=== PATIENT | female | born 1945 | race Caucasian/White ===

== ENCOUNTER → 2017-02-20 17:56 | Outpatient (CLI) | payer MEDICARE ==
[2015-01-30 13:20] VITALS: BMI 40.8
[~2017-02-20 17:56] MED LIST: BAYER CHEWABLE81 MG PO; BENADRYL INJ50 MG/ML IV; BENADRYL50 MG PO; BETAPACE 80 MG80 MG PO; BETAPACE160 MG PO; CALMOSEPTINE OI71 GM TOPICAL; COLACE100 MG PO; COUMADIN1 MG PO; COUMADIN3 MG PO; COUMADIN5 MG PO; DULCOLAX10 MG/SUPP RC; FLORANEX / LACT1 TAB PO; HYDROCODONE-APA1 TAB PO; LEVOXYL25 MCG PO; LOPERAMIDE HCL2 MG PO; LOPRESSOR25 MG PO; MIRALAX17 GM PO; MS CONTIN15 MG PO; MUCINEX600 MG PO; MULTI-DAY VITAM1 TAB PO; NALOXONE HC0.4 MG/M1 IV; NYSTATIN ORAL SU5 ML PO; NYSTATIN1 PWD TOPICAL; ONDANSETRON4 MG/2 M3 IV; OXYCODONE HCL5 MG PO; PHENERGAN25 M1 PO; POTASSIUM CHLO10 ME1 PO; PRILOSEC20 MG PO; PROTONIX40 MG PO; QUESTRAN PACK4 G/PKT PO; REGLAN10 MG PO; SENOKOT-S TABLE1 TAB PO; VANCOMYCIN250 MG/51 PO; XARELTO10 MG
== END | disposition home or self-care (01) ==
LOC: D.MAMMO 16:00
DX: Z12.31 Encounter for screening mammogram for malignant neoplasm of breast (principal)

== ENCOUNTER 2018-04-21 11:42 | Inpatient (IN) | payer MEDICARE ==
[~2018-04-21] VITALS: Ht 160 cm; Wt 105.9 kg
[2018-04-21] MEDS ORDERED: OMEPRAZOLE20 M1 PO (12:24)
[2018-04-21 13:00] VITALS: Ht 160 cm; Wt 105.9 kg
[2018-04-21 15:41] VITALS: BP 96/58
[2018-04-21 19:00] VITALS: BP 109/55
--- NOTE | 2018-04-21 20:00 | NUR ---
ASSESSMENT PER FLOWSHEET. HIVES AND RED RASHES NOTED TO ENTIRE BODY. SKIN TO LEFT ARM SLOUGHING OFF. IV PATENT RT FOREARM SALINE LOCKED. LEFT KNEE WOUND WITH BANDAIDE NOTED. BED ALARM BED ON SR UP X2 CALL LIGHT WITHIN REACH.
--- NOTE | 2018-04-21 21:30 | NUR ---
MEDS GIVEN PER MAR.
--- NOTE | 2018-04-22 | NUR ---
EYES CLOSED RESPIRATIONS WITH EASE AND UNLABORED.
[2018-04-22 01:26] VITALS: BP 105/51
--- NOTE | 2018-04-22 03:56 | NUR ---
RESTING QUIETLY DENIES NEEDS.
[2018-04-22 04:29] LABS: BASOPHILS 0 % (0-2); EOSINOPHILS 0 % (0-7); HEMATOCRIT 43.2 % (36.0-48.0); HEMOGLOBIN 14.4 g/dL (12-16); IMMATURE GRANULOCYTES 0.5 % (0-5); LYMPHOCYTES 7.3 % (15-50); MCHC 33.3 g/dL (31.0-37.0); MEAN PLATELET VOLUME 9.7 fL (7.4-10.4); MONOCYTES 3.1 % (2-11); NEUTROPHILS 89.1 % (40-80); PLATELET COUNT 275 10x3/uL (130-400); RDW 14.2 % (11.5-14.5); WBC 12.3 10x3/uL (4.8-10.8)
[2018-04-22 04:45] LABS: ALKALINE PHOSPHATASE 47 U/L (46-116); ALT (SGPT) 14 U/L (10-68); BILIRUBIN - TOTAL 0.52 mg/dL (0.2-1.3); CALC OSMOLALITY 284 mosm/kg (275-300); CALCIUM 8.7 mg/dL (8.5-10.1); CARBON DIOXIDE 25.8 mmol/L (21.0-32.0); CHLORIDE - SERUM 104 mmol/L (98-107); CREATININE - SERUM 0.7 mg/dL (0.6-1.3); GLUCOSE 151 mg/dL (74-106); POTASSIUM - SERUM 3.8 mmol/L (3.5-5.1); PROTEIN - SERUM 6.5 g/dL (6.4-8.2); SODIUM 141 mmol/L (136-145); UREA NITROGEN 16 mg/dL (7-18); eGFR NON AFRICAN AMERICAN 87 mL/min (90-120)
[2018-04-22 05:01] VITALS: BP 98/41
[2018-04-22 08:35] VITALS: BP 110/63
--- NOTE | 2018-04-22 09:15 | NUR ---
ASSISTED PATIENT TO BR. NO COMPLAINTS OR PTOBLEMS. CALL LIGHT WITHIN REACH.
--- NOTE | 2018-04-22 10:52 | NUR ---
PT INQUIRED ON POSSIBLE BENADRYL FOR ITCHING, ORDERED PT BENEDRYL AND PT ASKED ABOUT HOME MEDS, CALLED DR SAMUELS AND LEFT MESSAGE WITH NURSE IN REGARDS TO RESTARTING PT MEDS AND CREAM FOR PT RASH. PT STATED SHE FEELS BENJAMIN BUT REDNESS HAS NOT GONE DOWN, ADVISED DR KERNS BE IN AFTER CLINIC. BED IN LOW POSITION, CL IN REACH
[2018-04-22 12:00] VITALS: BP 103/46
[2018-04-22 16:00] VITALS: BP 117/56
[2018-04-22 21:37] VITALS: BP 124/53
--- NOTE | 2018-04-23 01:12 | NUR ---
PAIN IN IV SITE, EDEMATOUS. DC'D. 22G RESITED TO LEFT FOREARM, FIRST ATTEMPT. PT TOLERATED WELL.
[2018-04-23 01:25] VITALS: BP 123/51
--- NOTE | 2018-04-23 02:05 | NUR ---
DISCONNECTED FROM IV SET AND SALINE LOCKED.
[2018-04-23 04:50] VITALS: BP 114/50
--- NOTE | 2018-04-23 05:00 | NUR ---
EYES CLOSED RESPIRATIONS WITH EASE AND UNLABORED.
[2018-04-23 07:01] LABS: ANION GAP 15.8 mmol/L (8-16); BILIRUBIN - TOTAL 0.4 mg/dL (0.2-1.3); CALCIUM 8.3 mg/dL (8.5-10.1); CREATININE - SERUM 0.8 mg/dL (0.6-1.3); POTASSIUM - SERUM 3.8 mmol/L (3.5-5.1); PROTEIN - SERUM 6.4 g/dL (6.4-8.2)
[2018-04-23 07:49] LABS: HEMATOCRIT 40.7 % (36.0-48.0); HEMOGLOBIN 13.7 g/dL (12-16); LYMPHOCYTES 9.7 % (15-50); MCH 30.4 pg (26.0-34.0); MCHC 33.7 g/dL (31.0-37.0); MCV 90.4 fL (80.0-100.0); MEAN PLATELET VOLUME 9.8 fL (7.4-10.4); NEUTROPHILS 80.3 % (40-80); PLATELET COUNT 272 10x3/uL (130-400); RDW 13.9 % (11.5-14.5)
[2018-04-23 07:50] LABS: WBC 16.6 10x3/uL (4.8-10.8)
[2018-04-23 09:26] VITALS: BP 170/85
--- NOTE | 2018-04-23 09:41 | NUR ---
ASSESSMENT PER FLOW SHEET. PT IS WITHOUT DISTRESS.CALL LIGHT IN REACH
--- NOTE | 2018-04-23 11:08 | MORECARE ---
CASE MANAGEMENT DISCHARGE SUMMARY PATIENT: TREASURE MONTELONGO UNIT: [id number] ADM DATE: 04/21/18 AGE: 72 : 45 SEX: F ROOM/BED: D.2224 AUTHOR: KAEL DAVIS PHYSICIAN: REFERRING PHYSICIAN: RAEANN SAMUELS MD DATE OF SERVICE: 04/23/18 Discharge Plan Patient Name: TREASURE MONTELONGO [facility] [facility] 1945 Planned Disposition: Home Anticipated Discharge Date: Discharge Date: Expected LOS: Initial Reviewer: [email or web address] Initial Review Date: 04/23/2018 Generated: 04/23/18 12:08 pm DCPIA - Discharge Planning Initial Assessment Updated by [email or web address]: Isabel Reza on 04/23/18 11:08 am * Is the patient Alert and Oriented? Yes * How many steps to enter\exit or inside your home? 0/0 * PCP Dr. Samuels * Pharmacy [facility] * Preadmission Environment Home with Family * ADLs Independent * Equipment Cane Rolling Walker * Other Equipment Rolator walker * List name and contact numbers for known caregivers / representatives who currently or will assist patient after discharge: Radha Greenwood [facility] - [phone] * Verbal permission to speak to the caregivers and representatives has been obtained from the patient. Yes * Community resources currently utilized None * Additional services required to return to the preadmission environment? No * Can the patient safely return to the preadmission environment? Yes * Has this patient been hospitalized within the prior 30 days at any hospital? No Patient Name: TREASURE MONTELONGO Page 38580 at 1108 All edits/amendments must be made on the electronic document DICTATION DATE: 04/23/181107 BRICK KILN WORKER: JOLANTA 04/23/181107 RPT#: [id number] DC DATE: STATUS: ADM IN [facility] [address] [place] [address] END OF REPORT
--- NOTE | 2018-04-23 11:16 | MORECARE ---
CASE MANAGEMENT DISCHARGE SUMMARY PATIENT: TREASURE MONTELONGO UNIT: [id number] ADM DATE: 04/21/18 AGE: 72 : 45 SEX: F ROOM/BED: D.2224 AUTHOR: SUSAN,DOC PHYSICIAN: REFERRING PHYSICIAN: RAEANN SAMUELS MD DATE OF SERVICE: 04/23/18 Discharge Plan Patient Name: TREASURE MONTELONGO Facility: [facility]:[place] : 1945 Planned Disposition: Home Anticipated Discharge Date: Discharge Date: Expected LOS: Initial Reviewer: [email or web address] Initial Review Date: 04/23/2018 Generated: 04/23/18 12:15 pm Comments DCP- Discharge Planning Updated by [email or web address]: Isabel Reza on 04/23/18 10:[address] Patient Name: TREASURE MONTELONGO Admission Status: Elective Accout number: [id number] Admission Date: 04-21-2018 : 1945 Admission Diagnosis: Attending: RAEANN SAMUELS Current LOS: 2 Anticipated DC Date: Planned Disposition: Home Primary Insurance: MEDICARE A & B Discharge Planning Comments: CM met with patient to discuss discharge planning, she is alone in the room. States she lives with her cousin (Radha) and her family. States she is independent with all ADL's and IADL's. States her car is here and she will drive herself home on discharge. States she has had [facility] past, but does not feel she needs home health at this time. States she has a cane she uses when out. States she does not use her rolator walker. Declines need for DME. No needs identified. CM will continue to follow and assist with discharge planning/needs. Excel Specialist: Isabel Reza DCPIA - Discharge Planning Initial Assessment Updated by [email or web address]: Isabel Reza on 04/23/18 11:08 am * Is the patient Alert and Oriented? Yes * How many steps to enter\exit or inside your home? 0/0 * PCP Dr. Samuels * [facility]acy [facility] * Preadmission Environment Home with Family * ADLs Independent * Equipment Cane Rolling Walker * Other Equipment Rolator walker * List name and contact numbers for known caregivers / representatives who currently or will assist patient after discharge: Radha Greenwood - jeannettenua - [phone] * Verbal permission to speak to the caregivers and representatives has been obtained from the patient. Yes * Community resources currently utilized None * Additional services required to return to the preadmission environment? No * Can the patient safely return to the preadmission environment? Yes * Has this patient been hospitalized within the prior 30 days at any hospital? No Last DP export: 04/23/18 10:08 a Patient Name: TREASURE MONTELONGO Page 79062 at 1116 All edits/amendments must be made on the electronic document DICTATION DATE: 04/23/181114 MEN'S AND BOYS' CLOTHING SALESPERSON: JOLANTA 04/23/181114 RPT#: [id number] DC DATE: STATUS: ADM IN [facility] [address] [place] [address] END OF REPORT
[2018-04-23 14:04] VITALS: BP 131/62
[2018-04-23 17:09] VITALS: BP 139/80
--- NOTE | 2018-04-23 19:29 | NUR ---
REMAINS WITHOUT CHANGE FROM INITIAL SHIFT ASSESSMENT.CONT PLAN OF CARE
[2018-04-23 20:00] VITALS: BP 138/58
--- NOTE | 2018-04-23 20:00 | NUR ---
A&0 X 4. ARMS STILL APPEAR TO BE A MAJORITY COVERED IN RED RASH. UPPER ARM ARE PEELING. PT STATES THAT BENADRYL DOES HELP RELIEVE THE ITCHING. PT HAS NO COMPLAINTS AT THIS TIME, WILL CONTINUE TO MONITOR.
[2018-04-24] VITALS: BP 116/71
--- NOTE | 2018-04-24 02:22 | NUR ---
RESTING IN BED RESP UNLABORED NO APPARENT DISTRESS CALL DAVID ROBERTSON
--- NOTE | 2018-04-24 02:45 | NUR ---
SUPINE IN BED, EYES CLOSED, CHEST RISE NOTED. NO S/SX OF DISTRESS.
[2018-04-24 04:00] VITALS: BP 115/72
[2018-04-24 05:22] LABS: ALBUMIN 2.7 g/dL (3.4-5.0); ALKALINE PHOSPHATASE 45 U/L (46-116); ALT (SGPT) 13 U/L (10-68); BILIRUBIN - TOTAL 0.43 mg/dL (0.2-1.3); CALC OSMOLALITY 283 mosm/kg (275-300); CARBON DIOXIDE 24.8 mmol/L (21.0-32.0); CHLORIDE - SERUM 104 mmol/L (98-107); CREATININE - SERUM 0.6 mg/dL (0.6-1.3); GLUCOSE 134 mg/dL (74-106); POTASSIUM - SERUM 3.7 mmol/L (3.5-5.1); SODIUM 139 mmol/L (136-145); UREA NITROGEN 25 mg/dL (7-18); eGFR NON AFRICAN AMERICAN > 90 mL/min (90-120)
[2018-04-24 05:36] LABS: BASOPHILS 0 % (0-2); EOSINOPHILS 0 % (0-7); HEMATOCRIT 41.6 % (36.0-48.0); HEMOGLOBIN 13.6 g/dL (12-16); IMMATURE GRANULOCYTES 0.7 % (0-5); LYMPHOCYTES 7.1 % (15-50); MCH 29.6 pg (26.0-34.0); MCHC 32.7 g/dL (31.0-37.0); MCV 90.6 fL (80.0-100.0); MEAN PLATELET VOLUME 10.2 fL (7.4-10.4); MONOCYTES 5.2 % (2-11); PLATELET COUNT 254 10x3/uL (130-400); RBC 4.59 10x6/uL (4.00-5.40); RDW 14.4 % (11.5-14.5); WBC 14.1 10x3/uL (4.8-10.8)
--- NOTE | 2018-04-24 08:25 | NUR ---
PT RESTING IN BED WATCHING TV. NO S/S OF ACUTE DISTRESS. CL IN PLACE.
[2018-04-24 08:28] VITALS: BP 140/66
[2018-04-24 12:58] VITALS: BP 117/44
[2018-04-24 15:58] VITALS: BP 118/52
[2018-04-24 20:00] VITALS: BP 137/66
[2018-04-25] VITALS: BP 147/76
[2018-04-25 04:00] VITALS: BP 136/70
[2018-04-25 06:39] LABS: BASOPHILS 0.1 % (0-2); EOSINOPHILS 0 % (0-7); HEMATOCRIT 44.6 % (36.0-48.0); HEMOGLOBIN 14.7 g/dL (12-16); IMMATURE GRANULOCYTES 1.3 % (0-5); LYMPHOCYTES 9.7 % (15-50); MCH 29.9 pg (26.0-34.0); MCV 90.7 fL (80.0-100.0); MONOCYTES 7.4 % (2-11); NEUTROPHILS 81.5 % (40-80); PLATELET COUNT 281 10x3/uL (130-400); RBC 4.92 10x6/uL (4.00-5.40); RDW 14.2 % (11.5-14.5); WBC 13.6 10x3/uL (4.8-10.8)
--- NOTE | 2018-04-25 07:00 | NUR ---
REPORT RECIEVED ASSUMED CARE. PATIENT IN BED WITH IV INTACT. NO COMPLAINTS OR SIGNS OF DISTRESS. CALL LIGHT WITHIN REACH.
[2018-04-25 07:09] LABS: ALBUMIN 2.9 g/dL (3.4-5.0); ALKALINE PHOSPHATASE 41 U/L (46-116); ALT (SGPT) 12 U/L (10-68); BILIRUBIN - TOTAL 0.55 mg/dL (0.2-1.3); CALC OSMOLALITY 281 mosm/kg (275-300); CARBON DIOXIDE 27.2 mmol/L (21.0-32.0); CHLORIDE - SERUM 102 mmol/L (98-107); CREATININE - SERUM 0.7 mg/dL (0.6-1.3); GLUCOSE 123 mg/dL (74-106); POTASSIUM - SERUM 3.8 mmol/L (3.5-5.1); PROTEIN - SERUM 6.2 g/dL (6.4-8.2); SODIUM 139 mmol/L (136-145); UREA NITROGEN 22 mg/dL (7-18); eGFR NON AFRICAN AMERICAN 87 mL/min (90-120)
--- NOTE | 2018-04-25 08:45 | NUR ---
ASSESSMENT COMPLETE, VS STABLE. NO COMPLAINTS OR SIGNS OF DISTRESS. STATED SHE DOESNT WANT TO USE HER CREAM RIGHT NOW UNTIL SHE TALKS TO DR. SAMUELS ABOUT A FLARE UP SHE HAD LAST NIGHT. WILL CONTINUE TO MONITOR. IV INTACT. CALL LIGHT WITHIN REACH.
[2018-04-25 09:00] VITALS: BP 138/69
[2018-04-25 12:00] VITALS: BP 127/60
[2018-04-25 16:00] VITALS: BP 113/59
[2018-04-25 19:38] VITALS: BP 135/68
--- NOTE | 2018-04-25 20:27 | NUR ---
PATIENT RESTING IN BED AND DENIES NEEDS AT THIS TIME. ADMINISTERED MEDS PER ORDERS. BED IN LOWEST POSITION AND CALL LIGHT WITHIN REACH. ENCOURAGED THE PATIENT TO CALL IF SHE HAS NEEDS.
[2018-04-26] VITALS: BP 134/62
[2018-04-26 04:00] VITALS: BP 159/66
[2018-04-26 07:03] LABS: BASOPHILS 0 % (0-2); EOSINOPHILS 0 % (0-7); HEMATOCRIT 41.2 % (36.0-48.0); HEMOGLOBIN 13.5 g/dL (12-16); IMMATURE GRANULOCYTES 1.3 % (0-5); LYMPHOCYTES 9.9 % (15-50); MCH 29.7 pg (26.0-34.0); MCHC 32.8 g/dL (31.0-37.0); MCV 90.5 fL (80.0-100.0); MONOCYTES 8.2 % (2-11); NEUTROPHILS 80.6 % (40-80); PLATELET COUNT 228 10x3/uL (130-400); RBC 4.55 10x6/uL (4.00-5.40); WBC 12.1 10x3/uL (4.8-10.8)
[2018-04-26 07:23] LABS: ALBUMIN 2.7 g/dL (3.4-5.0); ALKALINE PHOSPHATASE 34 U/L (46-116); ALT (SGPT) 14 U/L (10-68); BILIRUBIN - TOTAL 0.45 mg/dL (0.2-1.3); CALC OSMOLALITY 284 mosm/kg (275-300); CARBON DIOXIDE 26.2 mmol/L (21.0-32.0); CHLORIDE - SERUM 104 mmol/L (98-107); CREATININE - SERUM 0.7 mg/dL (0.6-1.3); GLUCOSE 121 mg/dL (74-106); PROTEIN - SERUM 5.6 g/dL (6.4-8.2); SODIUM 139 mmol/L (136-145); eGFR NON AFRICAN AMERICAN 87 mL/min (90-120)
[2018-04-26 07:26] LABS: UREA NITROGEN 29 mg/dL (7-18)
[2018-04-26 09:00] VITALS: BP 146/69
[2018-04-26 12:00] VITALS: BP 131/71
--- NOTE | 2018-04-26 19:15 | NUR ---
RECEIVED CARE FROM DAY NURSE. SITTING UP IN BED WATHCING TV. REPORTS NO NEEDS AT THIS TIME. IV SL TO LEF FA. CALL LIGHT AT SIDE.
[2018-04-26 20:47] VITALS: BP 156/76
[2018-04-27 00:41] VITALS: BP 148/70
--- NOTE | 2018-04-27 03:55 | NUR ---
A/OX4. BREATHING EVEN AND UNLABORED. DENIES NEEDS AT THIS TIMKE. WILL CONTINUE POC.
[2018-04-27 04:00] VITALS: BP 188/89
--- NOTE | 2018-04-27 07:50 | NUR ---
ASSESSMENT PER FLOW SHEET. PT IS WITHOUT DISTRESS.RASH AND REDNESS BETTER PER PT. RASH LIGHT PINK IN SOME AREAS, RED IN GROIN AREAS.DENIES PAIN.CALL LIGHT IN REACH
[2018-04-27 09:14] VITALS: BP 149/81
--- NOTE | 2018-04-27 11:38 | NUR ---
FSBS 121
[2018-04-27 12:00] VITALS: BP 125/84
--- NOTE | 2018-04-27 13:08 | NUR ---
RESTING,WITHOUT DISTRESS.
--- NOTE | 2018-04-27 18:58 | NUR ---
PT IS WITHOUT DISTRESS. REMAINS WITHOUT CHANGE.CONT PLAN OF CARE
--- NOTE | 2018-04-27 20:00 | NUR ---
ASSESSMENT PER FLOWSHEET. IV PATENT LEFT FOREARM SALINE LOCKED. RED RASH DECREASING IN COLOR KENALOG CREAM APPLIED TO SKIN RASH. SR UP X2 CALL LIGHT WITHIN REACH. DENIES NEEDS.
--- NOTE | 2018-04-27 21:30 | NUR ---
MEDS GIVEN PER FLOWSHEET. [id number].
[2018-04-27 21:52] VITALS: BP 135/78
--- NOTE | 2018-04-28 | NUR ---
RESTING QUIETLY DENIES NEEDS.
[2018-04-28 04:50] VITALS: BP 127/72
--- NOTE | 2018-04-28 08:00 | NUR ---
ASSESSMENT PER FLOW SHEET. PT IS WITHOUT DISTRESS.SHE WILL SHOWER AFTER BREAKFAST THIS AM. CALL LIGHT IN REACH
[2018-04-28 08:36] VITALS: BP 147/80
[2018-04-28 13:06] VITALS: BP 145/64
--- NOTE | 2018-04-28 14:24 | NUR ---
REMAINS WITHOUT NEEDS.CALL LIGHT IN REACH
--- NOTE | 2018-04-28 14:28 | NUR ---
NUTRITION F/U CHART REVIEWED. PT TOLERATING DIABETIC DIET WITH 100% INTAKE RECENT MEALS. CONTINUES TO BE ASSESSED AT LOW NUTRITIONAL RISK. RD FOLLOWING
[2018-04-28 17:00] VITALS: BP 147/80
--- NOTE | 2018-04-28 18:55 | NUR ---
REMAINS UNCHANGED FROM INITIAL SHIFT ASSESSMENT.CONT PLAN OF CARE
[2018-04-28 21:50] VITALS: BP 103/55
--- NOTE | 2018-04-29 04:33 | NUR ---
PT LYING IN BED RESTING, NO SIGNS OF DISTRESS. WITHOUT NEEDS. WILL CONTINUE TO MONITOR
[2018-04-29 05:26] VITALS: BP 131/61
--- NOTE | 2018-04-29 07:30 | NUR ---
PATIENT SITTING UP IN BED WITH IV INTACT. NO COMPLAINTS OR SIGNS OF DISTRESS. CALL LIGHT WITHIN REACH.
--- NOTE | 2018-04-29 10:55 | NUR ---
PATIENT SITTING UP IN BED WITH NO COMPLAINTS. RASH AND HIVES ARE BETTER THAN A COUPLE OF DAYS AGO. PATIENT STATES READY TO GO HOME. IV INTACT. RECIEVED SCHEDULED MEDS. BS WNL. CALL LIGHT WITHIN REACH.
[2018-04-29 12:19] VITALS: BP 108/66
[2018-04-29] MEDS ORDERED: PROTONIX40 MG PO (12:30)
[2018-04-29] MEDS ORDERED: Eucerin CREAM TOPICAL (12:31)
[2018-04-29] MEDS ORDERED: KENALOG 0.1 % O15 GM TOPICAL (12:31)
[2018-04-29] MEDS ORDERED: PREDNISONE20 MG PO (12:34)
--- NOTE | 2018-04-29 13:10 | MORECARE ---
CASE MANAGEMENT DISCHARGE SUMMARY PATIENT: TREASURE MONTELONGO UNIT: [id number] ADM DATE: 04/21/18 AGE: 72 : 45 SEX: F ROOM/BED: D.2224 AUTHOR: SUSAN,DOC PHYSICIAN: REFERRING PHYSICIAN: RAEANN SAMUELS MD DATE OF SERVICE: 04/29/18 Discharge Plan Patient Name: TREASURE MONTELONGO Facility: [facility]:[place] : 1945 Planned Disposition: Home Anticipated Discharge Date: Discharge Date: Expected LOS: Initial Reviewer: [id number] Initial Review Date: 04/23/2018 Generated: 04/29/18 2:10 pm Comments DCP- Discharge Planning Updated by [email or web address]: Isabel Reza on 04/29/18 12:[address] Received order for discharge. IMM explained, signed, copy given. She states her cousin and her is coming to pick her up and drive her car home. States she does not need home health at this time. No needs identified. CM will continue to follow and assist with discharge planning if needed. DCP- Discharge Planning Updated by [email or web address]: Isabel Reza on 04/23/18 10:[address] Patient Name: TREASURE MONTELONGO Admission Status: Elective Accout number: [id number] Admission Date: 04-21-2018 : 1945 Admission Diagnosis: Attending: RAEANN SAMUELS Current LOS: 2 Anticipated DC Date: Planned Disposition: Home Primary Insurance: MEDICARE A & B Discharge Planning Comments: CM met with patient to discuss discharge planning, she is alone in the room. States she lives with her cousin (Radha) and her family. States she is independent with all ADL's and IADL's. States her car is here and she will drive herself home on discharge. States she has had [facility] in [facility] past, but does not feel she needs home health at this time. States she has a cane she uses when out. States she does not use her rolator walker. Declines need for DME. No needs identified. CM will continue to follow and assist with discharge planning/needs. Insurance Territory Manager: Isabel Reza DCPIA - Discharge Planning Initial Assessment Updated by [id number]: Isabel Cokerell on 04/23/18 11:08 am * Is the patient Alert and Oriented? Yes * How many steps to enter\exit or inside your home? 0/0 * PCP Dr. Samuels * [facility] * Preadmission Environment Home with Family * ADLs Independent * Equipment Cane Rolling Walker * Other Equipment Rolator walker * List name and contact numbers for known caregivers / representatives who currently or will assist patient after discharge: Radha Greenwood adenike - [phone] * Verbal permission to speak to the caregivers and representatives has been obtained from the patient. Yes * Community resources currently utilized None * Additional services required to return to the preadmission environment? No * Can the patient safely return to the preadmission environment? Yes * Has this patient been hospitalized within the prior 30 days at any hospital? No Coverage Notice Reviewer: [id number] - Isabel Reza Notice Issued Date-Time: 04/29/2018 13:02 Notice Type: IM Discharge Notice Notice Delivered To: Patient Relationship to Patient: Self Bean Viner Name: Delivery Method: HAND - Hand Delivered Mary Beth Days: Prior Verbal Notification: Recipient Understood Notice: Yes Recipient Signature: Yes Med Rec Note Co-signed by Attending: Coverage Notice Comment: IMM explained, signed, copy given, original placed in MR Last DP export: 04/23/18 10:16 a Patient Name: TREASURE MONTELONGO Page 71291 at 1310 All edits/amendments must be made on the electronic document DICTATION DATE: 04/29/18 1309 MUSIC ORCHESTRATOR: JOLANTA 04/29/18 1309 RPT#: [id number] DC DATE: STATUS: ADM IN [facility] [address] [place] [address] END OF REPORT
--- NOTE | 2018-04-29 14:28 | NUR ---
PATIENT RECIEVED DISCHARGE INSTRUCTIONS. VERBALIZED UNDERSTANDING. PRESCRIPTIONS SENT TO [facility]. PATIENT VERBALIZED UNDERSTANDING. IV REMOVED WITH CATH TIP INTACT. FRIEND HERE TO GET PATIENT. WAITING ON FOR DC. CALL LIGHT WITHIN REACH.
--- NOTE | 2018-04-30 13:27 | MORECARE ---
CASE MANAGEMENT DISCHARGE SUMMARY PATIENT: TREASURE MONTELONGO UNIT: [id number] ADM DATE: 04/21/18 AGE: 72 : 45 SEX: F ROOM/BED: D.2224 AUTHOR: SUSAN,DOC PHYSICIAN: REFERRING PHYSICIAN: RAEANN SAMUELS MD DATE OF SERVICE: 04/30/18 Discharge Plan Patient Name: TREASURE MONTELONGO Facility: [facility]:[place] : 1945 Planned Disposition: Home Anticipated Discharge Date: Discharge Date: 04/29/2018 Expected LOS: 0 Initial Reviewer: [id number] Initial Review Date: 04/23/2018 Generated: 04/30/18 2:26 pm Comments DCP- Discharge Planning Updated by [id number]: Isabel Libia on 04/29/18 12:[address] Received order for discharge. IMM explained, signed, copy given. She states her cousin and her is coming to pick her up and drive her car home. States she does not need home health at this time. No needs identified. CM will continue to follow and assist with discharge planning if needed. DCP- Discharge Planning Updated by [id number]: Isabel Libia on 04/23/18 10:[address] Patient Name: TREASURE MONTELONGO Admission Status: Elective Accout number: [id number] Admission Date: 04-21-2018 : 1945 Admission Diagnosis: Attending: RAEANN SAMUELS Current LOS: 2 Anticipated DC Date: Planned Disposition: Home Primary Insurance: MEDICARE A & B Discharge Planning Comments: CM met with patient to discuss discharge planning, she is alone in the room. States she lives with her cousin (Radha) and her family. States she is independent with all ADL's and IADL's. States her car is here and she will drive herself home on discharge. States she has had [facility] in [facility] past, but does not feel she needs home health at this time. States she has a cane she uses when out. States she does not use her rolator walker. Declines need for DME. No needs identified. CM will continue to follow and assist with discharge planning/needs. Reference Services Head: Isabel Reza DCPIA - Discharge Planning Initial Assessment Updated by [id number]: Isabel Reza on 04/23/18 11:08 am * Is the patient Alert and Oriented? Yes * How many steps to enter\exit or inside your home? 0/0 * PCP Dr. Samuels * Pharmacy [facility] * Preadmission Environment Home with Family * ADLs Independent * Equipment Cane Rolling Walker * Other Equipment Rolator walker * List name and contact numbers for known caregivers / representatives who currently or will assist patient after discharge: Radha Greenwood [facility] - [phone] * Verbal permission to speak to the caregivers and representatives has been obtained from the patient. Yes * Community resources currently utilized None * Additional services required to return to the preadmission environment? No * Can the patient safely return to the preadmission environment? Yes * Has this patient been hospitalized within the prior 30 days at any hospital? No Coverage Notice Reviewer: [email or web address] - Isabel Reza Notice Issued Date-Time: 04/29/2018 13:02 Notice Type: IM Discharge Notice Notice Delivered To: Patient Relationship to Patient: Self Fish Hatchery Supervisor Name: Delivery Method: HAND - Hand Delivered Mary Beth Days: Prior Verbal Notification: Recipient Understood Notice: Yes Recipient Signature: Yes Med Rec Note Co-signed by Attending: Coverage Notice Comment: IMM explained, signed, copy given, original placed in MR Last DP export: 04/29/18 12:10 p Patient Name: TREASURE MONTELONGO Page 29909 at 1327 All edits/amendments must be made on the electronic document DICTATION DATE: 04/30/18 1326 REHABILITATION THERAPIST: JOLANTA 04/30/18 1326 RPT#: [id number] DC DATE:04/29/18 STATUS: DIS IN [facility] [address] [place] [address] END OF REPORT
== END 2018-04-29 14:32 | disposition home or self-care (01) | DRG 607 ==
LOC: D.MS 11:42
PROVIDERS: ADMIT Family Medicine
DX: L27.0 Generalized skin eruption due to drugs and medicaments taken internally (principal); I48.91 Unspecified atrial fibrillation; T36.4X5A Adverse effect of tetracyclines, initial encounter

== ENCOUNTER 2018-05-24 16:30 | Inpatient (IN) | payer MEDICARE ==
[~2018-05-24] VITALS: Ht 160 cm; Wt 97.6 kg
[2018-05-24] VITALS (8 sets, daily range): BP systolic 88–106; BP diastolic 31–66
[~2018-05-24 16:30] MED LIST changes: +Eucerin CREAM TOPICAL; +KENALOG 0.1 % O15 GM TOPICAL; +OMEPRAZOLE20 M1 PO; +PREDNISONE20 MG PO
[2018-05-24 17:24] LABS: HEMATOCRIT 41.9 % (36.0-48.0); HEMOGLOBIN 14.2 g/dL (12-16); MCH 29.8 pg (26.0-34.0); MCHC 33.9 g/dL (31.0-37.0); MEAN PLATELET VOLUME 9.7 fL (7.4-10.4); PLATELET COUNT 193 10x3/uL (130-400); RBC 4.76 10x6/uL (4.00-5.40); WBC 12.5 10x3/uL (4.8-10.8)
[2018-05-24 17:36] LABS: APTT 32.9 SECONDS (22.8-39.4); INR 1.26 (0.85-1.17); PROTIME 15.3 SECONDS (11.6-15.0)
[2018-05-24 17:37] LABS: D-DIMER-QUANTITATIVE 2.39 ug/mLFEU (0.20-0.54)
[2018-05-24 17:54] LABS: LYMPHOCYTES 22 % (15-50); MONOCYTES 3 % (2-11); NEUTROPHILS 75 % (40-80)
[2018-05-24 17:55] LABS: PLATELET ESTIMATE NORMAL
[2018-05-24 18:37] LABS: ALBUMIN 2.1 g/dL (3.4-5.0); ALKALINE PHOSPHATASE 52 U/L (46-116); ALT (SGPT) 20 U/L (10-68); BILIRUBIN - TOTAL 1.18 mg/dL (0.2-1.3); CALC OSMOLALITY 279 mosm/kg (275-300); CARBON DIOXIDE 21.8 mmol/L (21.0-32.0); CHLORIDE - SERUM 102 mmol/L (98-107); CREATININE - SERUM 0.9 mg/dL (0.6-1.3); GLUCOSE 106 mg/dL (74-106); POTASSIUM - SERUM 3.3 mmol/L (3.5-5.1); PROTEIN - SERUM 6.1 g/dL (6.4-8.2); SODIUM 139 mmol/L (136-145); UREA NITROGEN 19 mg/dL (7-18); eGFR NON AFRICAN AMERICAN 65 mL/min (90-120)
[2018-05-24 18:40] LABS: MAGNESIUM - SERUM 1.3 mg/dL (1.8-2.4)
[2018-05-24 18:41] LABS: TROPONIN-I < 0.017 ng/mL (0.000-0.060)
[2018-05-25] VITALS (7 sets, daily range): BP systolic 91–112; BP diastolic 54–63; Ht 160 cm; Wt 97.6 kg
[2018-05-25] MEDS ORDERED: KENALOG 0.1 % 115 GM TOPICAL (02:44)
[2018-05-25] MEDS ORDERED: FUROSEMIDE20 MG PO (02:44)
[2018-05-25 04:10] LABS: BASOPHILS 0.2 % (0-2); EOSINOPHILS 0.5 % (0-7); HEMATOCRIT 37.9 % (36.0-48.0); HEMOGLOBIN 12.7 g/dL (12-16); IMMATURE GRANULOCYTES 4.6 % (0-5); MCH 29.3 pg (26.0-34.0); MCHC 33.5 g/dL (31.0-37.0); MCV 87.3 fL (80.0-100.0); MEAN PLATELET VOLUME 9.3 fL (7.4-10.4); MONOCYTES 7.6 % (2-11); NEUTROPHILS 70.1 % (40-80); PLATELET COUNT 178 10x3/uL (130-400); RBC 4.34 10x6/uL (4.00-5.40)
[2018-05-25 04:44] LABS: ALBUMIN 1.8 g/dL (3.4-5.0); ALKALINE PHOSPHATASE 42 U/L (46-116); ALT (SGPT) 16 U/L (10-68); CALCIUM 7.3 mg/dL (8.5-10.1); CARBON DIOXIDE 23.7 mmol/L (21.0-32.0); CHLORIDE - SERUM 103 mmol/L (98-107); CKMB 0.6 U/L (0.0-3.6); CREATINE KINASE 15 UL (21-215); CREATININE - SERUM 0.7 mg/dL (0.6-1.3); GLUCOSE 73 mg/dL (74-106); PROTEIN - SERUM 5.4 g/dL (6.4-8.2); SODIUM 140 mmol/L (136-145); eGFR NON AFRICAN AMERICAN 87 mL/min (90-120)
[2018-05-25 04:45] LABS: CALC OSMOLALITY 277 mosm/kg (275-300); UREA NITROGEN 13 mg/dL (7-18)
[2018-05-25 04:46] LABS: POTASSIUM - SERUM 2.8 mmol/L (3.5-5.1); TROPONIN-I < 0.017 ng/mL (0.000-0.060)
[2018-05-26 01:31] VITALS: BP 84/48
[2018-05-26 05:11] LABS: BASOPHILS 0.5 % (0-2); EOSINOPHILS 0.5 % (0-7); HEMATOCRIT 35.4 % (36.0-48.0); HEMOGLOBIN 11.7 g/dL (12-16); IMMATURE GRANULOCYTES 8.1 % (0-5); LYMPHOCYTES 13.1 % (15-50); MCH 29.4 pg (26.0-34.0); MCHC 33.1 g/dL (31.0-37.0); MCV 88.9 fL (80.0-100.0); MEAN PLATELET VOLUME 9.2 fL (7.4-10.4); MONOCYTES 7.8 % (2-11); PLATELET COUNT 208 10x3/uL (130-400); RBC 3.98 10x6/uL (4.00-5.40); RDW 15.3 % (11.5-14.5); WBC 7.4 10x3/uL (4.8-10.8)
[2018-05-26 05:30] LABS: ALBUMIN 1.7 g/dL (3.4-5.0); ANION GAP 12.6 mmol/L (8-16); BILIRUBIN - TOTAL 0.44 mg/dL (0.2-1.3); CALCIUM 7.2 mg/dL (8.5-10.1); CARBON DIOXIDE 24.8 mmol/L (21.0-32.0); CREATININE - SERUM 0.8 mg/dL (0.6-1.3); POTASSIUM - SERUM 3.4 mmol/L (3.5-5.1); PROTEIN - SERUM 4.9 g/dL (6.4-8.2)
[2018-05-26 06:19] VITALS: BP 106/61
[2018-05-26 09:44] VITALS: BP 116/59
--- NOTE | 2018-05-26 10:45 | EC ---
PATIENT:TREASURE MONTELONGO DATE OF SERVICE: 05/24/18 SEX: F MEDICAL RECORD: [id number] DATE OF : 45 LOCATION:D. D.211 AGE OF PATIENT: 72 ADMISSION DATE: 05/24/18 REFERRING PHYSICIAN: INTERPRETING PHYSICIAN: SUMEET ARCHIBALD MD ECHOCARDIOGRAM REPORT ECHO CHARGES 4 ECHO COMPLETE Date: 05/25/18 CLINICAL DIAGNOSIS: AFIB ECHOCARDIOGRAPHIC MEASUREMENTS (adult normal given) AC root (d.<3.7cm) 2.9 cm LV Septum d (<1.2 cm> 0.6 cm Valve Excursion 1.5 cm LV Septum (systole) 1.1 cm Left Atria (s.<4.0cm> 2.9 cm LVPW d(<1.2cm) 1.0 cm RV (d.<2.3cm) 2.2 cm LVPW (sytole) 1.5 cm LV diastole(<5.6CM) 4.5 cm MV E-F(>70mm/sec) cm LV systole 3.1 cm LVOT Diameter 1.8 cm MV exc.(>10mm) cm Est.ejection fraction (50-75%) % DOPPLER: LVIT cm/sec A 74 cm/sec E 64 cm/sec LA cm/sec RVSP 43.4 mmHg LVOT 98 cm/sec AOP1/2T m/s Asc. Ao 141 cm/sec RVOT 46 cm/sec RA cm/sec PA 80 cm/sec AV Gradient Peak 8.0 mmHg AV Mean 4.3 mmHg AV Area 1.6 cm MV Gradient Peak 2.6 mmHg MV Mean 1.2 mmHg MV Area cm COMMENTS: Sheriffs: Kwesi MORALES Pharmacy Account Director: 1 Dr. Archibald TAPE# PACS Pericardial Effusion N DATE OF SERVICE: 05/25/2018 PROCEDURE: Echocardiogram. FINDINGS: 1. Left ventricular chamber size is within normal limits. Left ventricular systolic function is normal. Overall ejection fraction estimated at 55%. 2. Left atrium, right atrium, and right ventricle chamber sizes are within normal limits. 3. Valvular structures have normal structure and motion. ECHOCARDIOGRAM REPORT [id number] TREASURE MONTELONGO 4. Doppler interrogation reveals moderate tricuspid regurgitation, no other valvular insufficiency or stenosis. Pulmonary systolic pressure is estimated 43 mmHg. 5. No evidence of pericardial effusion or left ventricular thrombus. TRANSINT:[id number] Voice Confirmation ID: [id number] DOCUMENT ID: [id number] SUMEET ARCHIBALD MD at 1045 CC: [id number] DICTATION DATE: 05/25/18 1200 MACHINING ENGINEER: 05/25/18 1222 ADM IN [place] [address] [place] [address]
[2018-05-26 13:16] VITALS: BP 100/43
[2018-05-26 16:40] VITALS: BP 115/54
[2018-05-26 21:14] VITALS: BP 118/61
[2018-05-27] VITALS: BP 108/57
[2018-05-27 05:20] VITALS: BP 125/65
[2018-05-27 05:49] LABS: ALBUMIN 1.7 g/dL (3.4-5.0); ALKALINE PHOSPHATASE 34 U/L (46-116); ALT (SGPT) 16 U/L (10-68); BILIRUBIN - TOTAL 0.42 mg/dL (0.2-1.3); CARBON DIOXIDE 22.7 mmol/L (21.0-32.0); CHLORIDE - SERUM 108 mmol/L (98-107); CREATININE - SERUM 0.7 mg/dL (0.6-1.3); GLUCOSE 83 mg/dL (74-106); POTASSIUM - SERUM 3.2 mmol/L (3.5-5.1); PROTEIN - SERUM 4.9 g/dL (6.4-8.2); SODIUM 142 mmol/L (136-145); eGFR NON AFRICAN AMERICAN 87 mL/min (90-120)
[2018-05-27 05:51] LABS: CALC OSMOLALITY 279 mosm/kg (275-300); CALCIUM 6.9 mg/dL (8.5-10.1); UREA NITROGEN 7 mg/dL (7-18)
[2018-05-27 05:58] LABS: HEMATOCRIT 32.5 % (36.0-48.0); HEMOGLOBIN 10.7 g/dL (12-16); MCH 29.6 pg (26.0-34.0); MCHC 32.9 g/dL (31.0-37.0); MCV 89.8 fL (80.0-100.0); MEAN PLATELET VOLUME 9.1 fL (7.4-10.4); RBC 3.62 10x6/uL (4.00-5.40); RDW 15.3 % (11.5-14.5); WBC 6.2 10x3/uL (4.8-10.8)
[2018-05-27 06:03] LABS: PLATELET COUNT 252 10x3/uL (130-400)
[2018-05-27 07:01] LABS: EOSINOPHILS 1 % (0-7); LYMPHOCYTES 39 % (15-50); MONOCYTES 5 % (2-11); NEUTROPHILS 40 % (40-80)
[2018-05-27 07:02] LABS: PLATELET ESTIMATE NORMAL
[2018-05-27 07:48] VITALS: BP 103/58
[2018-05-27 11:03] VITALS: BP 101/53
[2018-05-27 15:45] VITALS: BP 103/38
--- NOTE | 2018-05-27 17:52 | MORECARE ---
CASE MANAGEMENT DISCHARGE SUMMARY PATIENT: TREASURE MONTELONGO UNIT: [id number] ADM DATE: 05/24/18 AGE: 72 : 45 SEX: F ROOM/BED: D.2114 AUTHOR: KAEL DAVIS PHYSICIAN: REFERRING PHYSICIAN: RAEANN SAMUELS MD DATE OF SERVICE: 05/27/18 Discharge Plan Patient Name: TREASURE MONTELONGO Facility: [facility]:[place] : 1945 Planned Disposition: Home with Home Health Anticipated Discharge Date: Discharge Date: Expected LOS: Initial Reviewer: [email or web address] Initial Review Date: 05/27/2018 Generated: 05/27/18 6:52 pm Patient Name: TREASURE MONTELONGO Page 61075 at 1752 All edits/amendments must be made on the electronic document DICTATION DATE: 05/27/181751 MILL BEAM FITTER: JOLANTA 05/27/181751 RPT#: [id number] DC DATE: STATUS: ADM IN [facility] [address] [place] [address] END OF REPORT
--- NOTE | 2018-05-27 18:01 | MORECARE ---
CASE MANAGEMENT DISCHARGE SUMMARY PATIENT: TREASURE MONTELONGO UNIT: [id number] ADM DATE: 05/24/18 AGE: 72 : 45 SEX: F ROOM/BED: D.7591 AUTHOR: SUSAN,DOC PHYSICIAN: REFERRING PHYSICIAN: RAEANN SAMUELS MD DATE OF SERVICE: 05/27/18 Discharge Plan Patient Name: TREASURE MONTELONGO Facility: [facility]:[place] : 1945 Planned Disposition: Home with Home Health Anticipated Discharge Date: Discharge Date: Expected LOS: Initial Reviewer: [email or web address] Initial Review Date: 05/27/2018 Generated: 05/27/18 7:01 pm Comments DCP- Discharge Planning Updated by [email or web address]: Tang Bejarano on 05/27/18 4:[address] Patient Name: TREASURE MONTELONGO Admission Status: ER Accout number: [id number] Admission Date: 05-24-2018 : 1945 Admission Diagnosis:UNSPECIFIED ATRIAL FIBRILLATION Attending: RAEANN SAMUELS Current LOS: 3 Anticipated DC Date: Planned Disposition: Home with Home Health Primary Insurance: MEDICARE A & B PLANNED EXTERNAL PROVIDER: [facility] Discharge Planning Comments: CM MET WITH PT IN ROOM TO DISCUSS DISCHARGE PLANNING AND NEEDS. PT REPORTS LIVING AT HOME INDEPENDENTLY WITH HER COUSIN. PT HASCANE AND ROLLING WALKER WITH NO MEDICAL EQUIPMENT PROVIDER PREFERNCE. PT HAS HOME HEALTH WITH [facility].. CM DISCUSSED AVAILABILITY OF HOME HEALTH, REHAB SERVICES AND MEDICAL EQUIPMENT. PT DENIES DISCHARGE NEEDS OTHER THAN HOME HEALTH RESUMPTION WITH [facility]. PT REPORTS HER COUSIN WILL PICK HER UP FOR DISCHARGE HOME. CHOICE LISTING PROVIDED FOR HOME HEALTH, PT SIGNED CHOICE FOR [facility]. CM SPOKE TO VINAY OF [facility], PT WAS ADMITTED FOR HOME HEALTH AND THEY CAN RESUME ON DISCHARGE HOME. FOR DISCHARGE, NOTIFY [facility], [phone], FAX DISCHARGE INFORMATION TO [facility] AT [phone]. CM TO CONTINUE TO FOLLOW AND ASSIST NEEDED. Tunnel Miner: Tang Bejarano DCPIA - Discharge Planning Initial Assessment Updated by [email or web address]: Tang Bejarano on 05/27/18 5:53 pm * Is the patient Alert and Oriented? Yes * How many steps to enter\exit or inside your home? NONE * PCP DR. SAMUELS * Pharmacy [facility] * Preadmission Environment Home with Family * ADLs Independent * Equipment Cane Rolling Walker * Other Equipment NO MEDICAL EQUIPMENT PROVIDER PREFERENCE * List name and contact numbers for known caregivers / representatives who currently or will assist patient after discharge: LUL THEODORE, HOLLEYSIN, * Verbal permission to speak to the caregivers and representatives has been obtained from the patient. N/A * Community resources currently utilized Home Health * Please name any agencies selected above. [facility] * Additional services required to return to the preadmission environment? No * Can the patient safely return to the preadmission environment? Yes * Has this patient been hospitalized within the prior 30 days at any hospital? No Coverage Notice Reviewer: [email or web address] Andrew Bejarano Notice Issued Date-Time: 05/27/2018 10:35 Notice Type: Patient Choice Letter Notice Delivered To: Patient Relationship to Patient: Roller Checker Name: Delivery Method: HAND - Hand Delivered Mary Beth Days: Prior Verbal Notification: Recipient Understood Notice: Yes Recipient Signature: Yes Med Rec Note Co-signed by Attending: Coverage Notice Comment: [facility] Last DP export: 05/27/18 4:52 p Patient Name: TREASURE MONTELONGO Page 44172 at 1801 All edits/amendments must be made on the electronic document DICTATION DATE: 05/27/181799 REMOTE RUBY ON RAILS DEVELOPER: JOLANTA 05/27/18 1800 RPT#: [id number] DC DATE: STATUS: ADM IN [facility] [address] [place] [address] END OF REPORT
[2018-05-27 20:00] VITALS: BP 90/59
[2018-05-28 00:43] VITALS: BP 119/56
[2018-05-28 04:00] VITALS: BP 100/50
[2018-05-28 05:34] LABS: ALBUMIN 1.8 g/dL (3.4-5.0); ALKALINE PHOSPHATASE 37 U/L (46-116); BILIRUBIN - TOTAL 0.41 mg/dL (0.2-1.3); CALCIUM 7.2 mg/dL (8.5-10.1); CARBON DIOXIDE 25.9 mmol/L (21.0-32.0); CHLORIDE - SERUM 108 mmol/L (98-107); CREATININE - SERUM 0.6 mg/dL (0.6-1.3); GLUCOSE 86 mg/dL (74-106); PROTEIN - SERUM 5.1 g/dL (6.4-8.2); SODIUM 143 mmol/L (136-145); eGFR NON AFRICAN AMERICAN > 90 mL/min (90-120)
[2018-05-28 05:37] LABS: BASOPHILS 1.7 % (0-2); EOSINOPHILS 0.6 % (0-7); HEMOGLOBIN 11.3 g/dL (12-16); IMMATURE GRANULOCYTES 9.5 % (0-5); LYMPHOCYTES 25.2 % (15-50); MCH 29.4 pg (26.0-34.0); MCHC 33.2 g/dL (31.0-37.0); MCV 88.5 fL (80.0-100.0); MEAN PLATELET VOLUME 9.1 fL (7.4-10.4); MONOCYTES 13.3 % (2-11); NEUTROPHILS 49.7 % (40-80); PLATELET COUNT 267 10x3/uL (130-400); RBC 3.84 10x6/uL (4.00-5.40); RDW 15.4 % (11.5-14.5); WBC 6.6 10x3/uL (4.8-10.8)
[2018-05-28 05:45] LABS: ALT (SGPT) 26 U/L (10-68); CALC OSMOLALITY 280 mosm/kg (275-300); UREA NITROGEN 3 mg/dL (7-18)
[2018-05-28 07:58] VITALS: BP 127/63
[2018-05-28 11:33] VITALS: BP 101/48
[2018-05-28 15:14] VITALS: BP 110/62
[2018-05-28 20:00] VITALS: BP 133/65
[2018-05-29] VITALS: BP 124/61
[2018-05-29 04:00] VITALS: BP 108/54
[2018-05-29 05:50] LABS: HEMATOCRIT 36.5 % (36.0-48.0); HEMOGLOBIN 12.1 g/dL (12-16); MCH 29.5 pg (26.0-34.0); MCHC 33.2 g/dL (31.0-37.0); MEAN PLATELET VOLUME 9.1 fL (7.4-10.4); PLATELET COUNT 244 10x3/uL (130-400); RDW 15.4 % (11.5-14.5); WBC 6.8 10x3/uL (4.8-10.8)
[2018-05-29 05:54] LABS: ALBUMIN 1.9 g/dL (3.4-5.0); ANION GAP 11.8 mmol/L (8-16); BILIRUBIN - TOTAL 0.5 mg/dL (0.2-1.3); CALCIUM 7.4 mg/dL (8.5-10.1); CARBON DIOXIDE 27.5 mmol/L (21.0-32.0); POTASSIUM - SERUM 3.3 mmol/L (3.5-5.1); PROTEIN - SERUM 5.2 g/dL (6.4-8.2)
[2018-05-29 05:56] LABS: CREATININE - SERUM 0.8 mg/dL (0.6-1.3)
[2018-05-29 06:52] LABS: LYMPHOCYTES 37 % (15-50); MONOCYTES 5 % (2-11); NEUTROPHILS 45 % (40-80)
[2018-05-29 06:53] LABS: PLATELET ESTIMATE NORMAL
[2018-05-29 08:00] VITALS: BP 136/74
[2018-05-29 11:57] VITALS: BP 103/53
--- NOTE | 2018-05-29 14:00 | MORECARE ---
CASE MANAGEMENT DISCHARGE SUMMARY PATIENT: TREASURE MONTELONGO UNIT: [id number] ADM DATE: 05/24/18 AGE: 72 : 45 SEX: F ROOM/BED: D.5096 AUTHOR: SUSAN,DOC PHYSICIAN: REFERRING PHYSICIAN: RAEANN SAMUELS MD DATE OF SERVICE: 05/29/18 Discharge Plan Patient Name: TREASURE MONTELONGO Facility: [facility] : 1945 Planned Disposition: Home with Home Health Anticipated Discharge Date: Discharge Date: Expected LOS: Initial Reviewer: [id number] Initial Review Date: 05/27/2018 Generated: 05/29/18 3:00 pm Comments DCP- Discharge Planning Updated by [id number]: Tang Bejarano on 05/27/18 4:[address] Patient Name: TREASURE MONTELONGO Admission Status: ER Accout number: [id number] Admission Date: 05-24-2018 : 1945 Admission Diagnosis:UNSPECIFIED ATRIAL FIBRILLATION Attending: RAEANN SAMUELS Current LOS: 3 Anticipated DC Date: Planned Disposition: Home with Home Health Primary Insurance: MEDICARE A & B PLANNED EXTERNAL PROVIDER: [facility] Discharge Planning Comments: CM MET WITH PT IN ROOM TO DISCUSS DISCHARGE PLANNING AND NEEDS. PT REPORTS LIVING AT HOME INDEPENDENTLY WITH HER COUSIN. PT HASCANE AND ROLLING WALKER WITH NO MEDICAL EQUIPMENT PROVIDER PREFERNCE. PT HAS HOME HEALTH WITH [facility].. CM DISCUSSED AVAILABILITY OF HOME HEALTH, REHAB SERVICES AND MEDICAL EQUIPMENT. PT DENIES DISCHARGE NEEDS OTHER THAN HOME HEALTH RESUMPTION WITH [facility]. PT REPORTS HER COUSIN WILL PICK HER UP FOR DISCHARGE HOME. CHOICE LISTING PROVIDED FOR HOME HEALTH, PT SIGNED CHOICE FOR [facility]. CM SPOKE TO [facility] OF [facility], PT WAS ADMITTED FOR HOME HEALTH AND THEY CAN RESUME ON DISCHARGE HOME. FOR DISCHARGE, NOTIFY [facility], [phone], FAX DISCHARGE INFORMATION TO [facility] AT [phone]. CM TO CONTINUE TO FOLLOW AND ASSIST NEEDED. Gas Well Drilling Manager: Tang Bejarano DCPIA - Discharge Planning Initial Assessment Updated by [id number]: Tang Bejarano on 05/27/18 5:53 pm * Is the patient Alert and Oriented? Yes * How many steps to enter\exit or inside your home? NONE * PCP DR. SAMUELS * Pharmacy [facility] * Preadmission Environment Home with Family * ADLs Independent * Equipment Cane Rolling Walker * Other Equipment NO MEDICAL EQUIPMENT PROVIDER PREFERENCE * List name and contact numbers for known caregivers / representatives who currently or will assist patient after discharge: LUL THEODORE, MAEVE, * Verbal permission to speak to the caregivers and representatives has been obtained from the patient. N/A * Community resources currently utilized Home Health * Please name any agencies selected above. [facility] * Additional services required to return to the preadmission environment? No * Can the patient safely return to the preadmission environment? Yes * Has this patient been hospitalized within the prior 30 days at any hospital? No External Providers External Provider: [facility] Next Contact Date: 05/29/2018 Service Request Date: Service Type: Resolution: Reviewer: Comments: Coverage Notice Reviewer: [id number] Andrew Bejarano Notice Issued Date-Time: 05/27/2018 10:35 Notice Type: Patient Choice Letter Notice Delivered To: Patient Relationship to Patient: Chest Pain Coordinator Name: Delivery Method: HAND - Hand Delivered Mary Beth Days: Prior Verbal Notification: Recipient Understood Notice: Yes Recipient Signature: Yes Med Rec Note Co-signed by Attending: Coverage Notice Comment: [facility] Reviewer: [id number] Andrew Bejarano Notice Issued Date-Time: 05/29/2018 10:25 Notice Type: IM Discharge Notice Notice Delivered To: Patient Relationship to Patient: Chest Pain Coordinator Name: Delivery Method: HAND - Hand Delivered Mary Beth Days: Prior Verbal Notification: Recipient Understood Notice: Yes Recipient Signature: Yes Med Rec Note Co-signed by Attending: Coverage Notice Comment: Last DP export: 05/27/18 5:01 p Patient Name: TREASURE MONTELONGO Page 23485 at 1400 All edits/amendments must be made on the electronic document DICTATION DATE: 05/29/18 1400 MULTI SHARE PROGRAM COORDINATOR: JOLANTA 05/29/18 1400 RPT#: [id number] DC DATE: STATUS: ADM IN [facility] [address] [place] [address] END OF REPORT
--- NOTE | 2018-05-29 14:11 | MORECARE ---
CASE MANAGEMENT DISCHARGE SUMMARY PATIENT: TREASURE MONTELONGO UNIT: [id number] ADM DATE: 05/24/18 AGE: 72 : 45 SEX: F ROOM/BED: D.9531 AUTHOR: SUSAN,DOC PHYSICIAN: REFERRING PHYSICIAN: RAEANN SAMUELS MD DATE OF SERVICE: 05/29/18 Discharge Plan Patient Name: TREASURE MONTELONGO Facility: [facility]:[place] : 1945 Planned Disposition: Home with Home Health Anticipated Discharge Date: Discharge Date: Expected LOS: Initial Reviewer: [id number] Initial Review Date: 05/27/2018 Generated: 05/29/18 3:11 pm Comments DCP- Discharge Planning Updated by [id number]: Tang Bejarano on 05/29/18 1:[address] Patient Name: TREASURE MONTELONGO Encounter No: [id number] : 1945 Primary Insurance: MEDICARE A & B Anticipated DC Date: Planned Disposition: Home with Home Health External Planned Provider: [facility] DCP follow-up note: CM RECEIVED CALL FROM PT WITH REQUEST TO SPEAK TO HER. CM MET WITH PT WHO INFORMED CM THAT SHE IS NOT GETTING GOOD CARE AND HAS CALLED THE FIXTURE FABRICATOR REPAIRER. FIXTURE FABRICATOR REPAIRER ARRIVED AND DISCUSSED CARE COMPLAINT WITH PT. PT DENIES FURTHER NEEDS FROM J[place]EL[place], REPORTS SHE MAY BE GOING HOME IN THE NEXT DAY OR SO. IMPORTANT MESSAGE FROM MEDICARE PROVIDED AND EXPLAINED. CM NOTIFIED [facility] OF [facility]. CM FAXED HOSPITAL UPDATE TO CARE AT [phone]. FOR DISCHARGE, NOTIFY [facility], [phone], FAX DISCHARGE INFORMATION TO CARE AT [phone]. CM TO CONTINUE TO FOLLOW AND ASSIST NEEDED. Cement Mason Apprentice: Tang Bejarano DCP- Discharge Planning Updated by [id number]: Tang Bejarano on 05/27/18 4:[address] Patient Name: TREASURE MONTELONGO Admission Status: ER Accout number: [id number] Admission Date: 05-24-2018 : 1945 Admission Diagnosis:UNSPECIFIED ATRIAL FIBRILLATION Attending: RAEANN SAMUELS Current LOS: 3 Anticipated DC Date: Planned Disposition: Home with Home Health Primary Insurance: MEDICARE A & B PLANNED EXTERNAL PROVIDER: [facility] Discharge Planning Comments: CM MET WITH PT IN ROOM TO DISCUSS DISCHARGE PLANNING AND NEEDS. PT REPORTS LIVING AT HOME INDEPENDENTLY WITH HER COUSIN. PT HASCANE AND ROLLING WALKER WITH NO MEDICAL EQUIPMENT PROVIDER PREFERNCE. PT HAS HOME HEALTH WITH [facility].. CM DISCUSSED AVAILABILITY OF HOME HEALTH, REHAB SERVICES AND MEDICAL EQUIPMENT. PT DENIES DISCHARGE NEEDS OTHER THAN HOME HEALTH RESUMPTION WITH [facility]. PT REPORTS HER COUSIN WILL PICK HER UP FOR DISCHARGE HOME. CHOICE LISTING PROVIDED FOR HOME HEALTH, PT SIGNED CHOICE FOR [facility]. CM SPOKE TO V[facility] OF [facility], PT WAS ADMITTED FOR HOME HEALTH AND THEY CAN RESUME ON DISCHARGE HOME. FOR DISCHARGE, NOTIFY [facility], [phone], FAX DISCHARGE INFORMATION TO CARE AT [phone]. CM TO CONTINUE TO FOLLOW AND ASSIST NEEDED. Cement Mason Apprentice: Tang Bejarano DCPIA - Discharge Planning Initial Assessment Updated by [id number]: Tang Bejarano on 05/27/18 5:53 pm * Is the patient Alert and Oriented? Yes * How many steps to enter\exit or inside your home? NONE * PCP DR. SAMUELS * Pharmacy [facility] * Preadmission Environment Home with Family * ADLs Independent * Equipment Cane Rolling Walker * Other Equipment NO MEDICAL EQUIPMENT PROVIDER PREFERENCE * List name and contact numbers for known caregivers / representatives who currently or will assist patient after discharge: LUL THEODORE, COUSIN, * Verbal permission to speak to the caregivers and representatives has been obtained from the patient. N/A * Community resources currently utilized Home Health * Please name any agencies selected above. [facility] * Additional services required to return to the preadmission environment? No * Can the patient safely return to the preadmission environment? Yes * Has this patient been hospitalized within the prior 30 days at any hospital? No Coverage Notice Reviewer: [id number] Bejarano Notice Issued Date-Time: 05/27/2018 10:35 Notice Type: Patient Choice Letter Notice Delivered To: Patient Relationship to Patient: Chain Mortiser Operator Name: Delivery Method: HAND - Hand Delivered Mary Beth Days: Prior Verbal Notification: Recipient Understood Notice: Yes Recipient Signature: Yes Med Rec Note Co-signed by Attending: Coverage Notice Comment: [facility] Reviewer: [id number] Bejarano Notice Issued Date-Time: 05/29/2018 10:25 Notice Type: IM Discharge Notice Notice Delivered To: Patient Relationship to Patient: Chain Mortiser Operator Name: Delivery Method: HAND - Hand Delivered Mary Beth Days: Prior Verbal Notification: Recipient Understood Notice: Yes Recipient Signature: Yes Med Rec Note Co-signed by Attending: Coverage Notice Comment: Last DP export: 05/29/18 1:00 p Patient Name: TREASURE MONTELONGO Page 36809 at 1411 All edits/amendments must be made on the electronic document DICTATION DATE: 05/29/18 1411 DATA SERVICES DEVELOPER: JOLANTA 05/29/18 1411 RPT#: [id number] DC DATE: STATUS: ADM IN [facility] [address] [place] [address] END OF REPORT
[2018-05-29 15:03] VITALS: BP 96/52
[2018-05-29 22:08] VITALS: BP 110/53
[2018-05-30 05:05] LABS: BASOPHILS 0.9 % (0-2); EOSINOPHILS 0.9 % (0-7); HEMATOCRIT 38.7 % (36.0-48.0); HEMOGLOBIN 12.8 g/dL (12-16); IMMATURE GRANULOCYTES 8.6 % (0-5); LYMPHOCYTES 30.7 % (15-50); MCH 29.6 pg (26.0-34.0); MCHC 33.1 g/dL (31.0-37.0); MCV 89.6 fL (80.0-100.0); MONOCYTES 11.6 % (2-11); NEUTROPHILS 47.3 % (40-80); PLATELET COUNT 266 10x3/uL (130-400); RBC 4.32 10x6/uL (4.00-5.40); RDW 15.6 % (11.5-14.5); WBC 7.6 10x3/uL (4.8-10.8)
[2018-05-30 05:21] LABS: ALBUMIN 2.1 g/dL (3.4-5.0); BILIRUBIN - TOTAL 0.56 mg/dL (0.2-1.3); CARBON DIOXIDE 29.4 mmol/L (21.0-32.0); CREATININE - SERUM 0.8 mg/dL (0.6-1.3); PROTEIN - SERUM 5.5 g/dL (6.4-8.2)
[2018-05-30 05:26] LABS: ANION GAP 11.3 mmol/L (8-16); POTASSIUM - SERUM 4.7 mmol/L (3.5-5.1)
[2018-05-30 07:40] VITALS: BP 113/41
[2018-05-30 11:14] VITALS: BP 98/45
[2018-05-30 15:20] VITALS: BP 92/38
[2018-05-30 20:00] VITALS: BP 96/43
[2018-05-31] VITALS: BP 108/55
[2018-05-31 04:00] VITALS: BP 109/49
[2018-05-31 08:06] VITALS: BP 109/55
[2018-05-31 13:06] VITALS: BP 94/39
[2018-05-31 17:55] VITALS: BP 96/48
[2018-05-31 20:24] VITALS: BP 115/59
[2018-06-01 01:24] VITALS: BP 101/56
[2018-06-01 05:02] VITALS: BP 134/96
[2018-06-01 07:03] VITALS: BP 106/67
[2018-06-01 12:53] VITALS: BP 93/70
[2018-06-01 17:47] VITALS: BP 116/57
[2018-06-01 21:03] VITALS: BP 104/74
[2018-06-02 01:03] VITALS: BP 98/44
[2018-06-02 06:21] VITALS: BP 105/47
[2018-06-02 09:06] VITALS: BP 94/48
[2018-06-02 13:06] VITALS: BP 108/66
[2018-06-02 19:11] VITALS: BP 100/45
[2018-06-02 22:27] VITALS: BP 105/37
[2018-06-03 02:16] VITALS: BP 89/40
[2018-06-03 05:44] VITALS: BP 93/43
[2018-06-03 06:38] LABS: ALBUMIN 2.1 g/dL (3.4-5.0); ALKALINE PHOSPHATASE 46 U/L (46-116); ALT (SGPT) 25 U/L (10-68); BILIRUBIN - TOTAL 0.64 mg/dL (0.2-1.3); CALC OSMOLALITY 284 mosm/kg (275-300); CALCIUM 7.6 mg/dL (8.5-10.1); CARBON DIOXIDE 26.7 mmol/L (21.0-32.0); CHLORIDE - SERUM 106 mmol/L (98-107); CREATININE - SERUM 0.7 mg/dL (0.6-1.3); GLUCOSE 86 mg/dL (74-106); PROTEIN - SERUM 5.3 g/dL (6.4-8.2); SODIUM 144 mmol/L (136-145); UREA NITROGEN 11 mg/dL (7-18); eGFR NON AFRICAN AMERICAN 87 mL/min (90-120)
[2018-06-03 07:07] LABS: POTASSIUM - SERUM 2.8 mmol/L (3.5-5.1)
[2018-06-03 07:47] VITALS: BP 107/44
[2018-06-03 11:26] VITALS: BP 96/40
[2018-06-03 15:03] VITALS: BP 106/44
--- NOTE | 2018-06-03 16:12 | MORECARE ---
CASE MANAGEMENT DISCHARGE SUMMARY PATIENT: TREASURE MONTELONGO UNIT: [id number] ADM DATE: 05/24/18 AGE: 72 : 45 SEX: F ROOM/BED: D.2363 AUTHOR: SUSAN,DOC PHYSICIAN: REFERRING PHYSICIAN: RAEANN SAMUELS MD DATE OF SERVICE: 06/03/18 Discharge Plan Patient Name: TREASURE MONTELONGO Facility: [facility]:[place] : 1945 Planned Disposition: Home with Home Health Anticipated Discharge Date: Discharge Date: Expected LOS: Initial Reviewer: [id number] Initial Review Date: 05/27/2018 Generated: 06/03/18 5:12 pm Comments DCP- Discharge Planning Updated by [email or web address]: Tang Bejarano on 06/03/18 3:[address] Patient Name: TREASURE MONTLEONGO Encounter No: [id number] : 1945 Primary Insurance: MEDICARE A & B Anticipated DC Date: Planned Disposition: Home with Home Health External Planned Provider: [facility] DCP follow-up note: CM RECEIVED DISCHARGE PLANNING ORDER, MET WITH PT IN ROOM TO DISCUSS DISCHARGE PLANNIG AND NEEDS. PT REPORTS PLAN TO GO HOME WITH [facility] RESUMPTION. PT DENIES FURTHER NEEDS FROM CM, IMPORTANT MESSAGE FROM MEDICARE PROVIDED AND EXPLAINED CM FAXED HOSPITAL UPDATE TO [facility] AT [phone]. FOR DISCHARGE, NOTIFY [facility], [phone], FAX DISCHARGE INFORMATION TO [facility] AT [phone]. CM TO CONTINUE TO FOLLOW AND ASSIST NEEDED. Highway Maintenance Supervisor: Tang Bejarano DCP- Discharge Planning Updated by [id number]: Tang Bejarano on 05/29/18 1:[address] Patient Name: TREASURE MONTELONGO Encounter No: [id number] : 1945 Primary Insurance: MEDICARE A & B Anticipated DC Date: Planned Disposition: Home with Home Health External Planned Provider: [facility] DCP follow-up note: CM RECEIVED CALL FROM PT WITH REQUEST TO SPEAK TO HER. CM MET WITH PT WHO INFORMED CM THAT SHE IS NOT GETTING GOOD CARE AND HAS CALLED THE HORSE TRADER. HORSE TRADER ARRIVED AND DISCUSSED CARE COMPLAINT WITH PT. PT DENIES FURTHER NEEDS FROM CM, REPORTS SHE MAY BE GOING HOME IN THE NEXT DAY OR SO. IMPORTANT MESSAGE FROM MEDICARE PROVIDED AND EXPLAINED. CM NOTIFIED [facility] OF [facility]. CM FAXED HOSPITAL UPDATE TO [facility] AT [phone]. FOR DISCHARGE, NOTIFY [facility], [phone], FAX DISCHARGE INFORMATION TO [facility] AT [phone]. CM TO CONTINUE TO FOLLOW AND ASSIST NEEDED. Highway Maintenance Supervisor: Tang Bejarano DCP- Discharge Planning Updated by [id number]: Tang Bejarano on 05/27/18 4:[address] Patient Name: TREASURE MONTELONGO Admission Status: ER Accout number: [id number] Admission Date: 05-24-2018 : 1945 Admission Diagnosis:UNSPECIFIED ATRIAL FIBRILLATION Attending: RAEANN SAMUELS Current LOS: 3 Anticipated DC Date: Planned Disposition: Home with Home Health Primary Insurance: MEDICARE A & B PLANNED EXTERNAL PROVIDER: [facility] Discharge Planning Comments: CM MET WITH PT IN ROOM TO DISCUSS DISCHARGE PLANNING AND NEEDS. PT REPORTS LIVING AT HOME INDEPENDENTLY WITH HER COUSIN. PT HASCANE AND ROLLING WALKER WITH NO MEDICAL EQUIPMENT PROVIDER PREFERNCE. PT HAS HOME HEALTH WITH [facility].. CM DISCUSSED AVAILABILITY OF HOME HEALTH, REHAB SERVICES AND MEDICAL EQUIPMENT. PT DENIES DISCHARGE NEEDS OTHER THAN HOME HEALTH RESUMPTION WITH [facility]. PT REPORTS HER COUSIN WILL PICK HER UP FOR DISCHARGE HOME. CHOICE LISTING PROVIDED FOR HOME HEALTH, PT SIGNED CHOICE FOR [facility]. CM SPOKE TO V[facility] OF [facility], PT WAS ADMITTED FOR HOME HEALTH AND THEY CAN RESUME ON DISCHARGE HOME. FOR DISCHARGE, NOTIFY [facility], [phone], FAX DISCHARGE INFORMATION TO [facility] AT [phone]. CM TO CONTINUE TO FOLLOW AND ASSIST NEEDED. Highway Maintenance Supervisor: Tang Bejarano DCPIA - Discharge Planning Initial Assessment Updated by [id number]: Tang Bejarano on 05/27/18 5:53 pm * Is the patient Alert and Oriented? Yes * How many steps to enter\exit or inside your home? NONE * PCP DR. SAMUELS * [facility]acy [facility] * Preadmission Environment Home with Family * ADLs Independent * Equipment Cane Rolling Walker * Other Equipment NO MEDICAL EQUIPMENT PROVIDER PREFERENCE * List name and contact numbers for known caregivers / representatives who currently or will assist patient after discharge: MAEVE SINGH, * Verbal permission to speak to the caregivers and representatives has been obtained from the patient. N/A * Community resources currently utilized Home Health * Please name any agencies selected above. [facility] * Additional services required to return to the preadmission environment? No * Can the patient safely return to the preadmission environment? Yes * Has this patient been hospitalized within the prior 30 days at any hospital? No Coverage Notice Reviewer: MEREDITH Bejarano Notice Issued Date-Time: 05/27/2018 10:35 Notice Type: Patient Choice Letter Notice Delivered To: Patient Relationship to Patient: Computer Systems Analyst Name: Delivery Method: HAND - Hand Delivered Mary Beth Days: Prior Verbal Notification: Recipient Understood Notice: Yes Recipient Signature: Yes Med Rec Note Co-signed by Attending: Coverage Notice Comment: [facility] Reviewer: MEREDITH Bejarano Notice Issued Date-Time: 05/29/2018 10:25 Notice Type: IM Discharge Notice Notice Delivered To: Patient Relationship to Patient: Computer Systems Analyst Name: Delivery Method: HAND - Hand Delivered Mary Beth Days: Prior Verbal Notification: Recipient Understood Notice: Yes Recipient Signature: Yes Med Rec Note Co-signed by Attending: Coverage Notice Comment: Reviewer: MEREDITH Bejarano Notice Issued Date-Time: 06/03/2018 14:27 Notice Type: IM Discharge Notice Notice Delivered To: Patient Relationship to Patient: Computer Systems Analyst Name: Delivery Method: HAND - Hand Delivered Mary Beth Days: Prior Verbal Notification: Recipient Understood Notice: Yes Recipient Signature: Yes Med Rec Note Co-signed by Attending: Coverage Notice Comment: Last DP export: 05/29/18 1:11 p Patient Name: TREASURE MONTELONGO Page 00331 at 1612 All edits/amendments must be made on the electronic document DICTATION DATE: 06/03/181611 MATERIALS MANAGEMENT MANAGER: JOLANTA 06/03/181611 RPT#: [id number] DC DATE: STATUS: ADM IN [facility] [address] [place] [address] END OF REPORT
[2018-06-03 22:04] VITALS: BP 96/40
[2018-06-04 01:17] VITALS: BP 98/49
[2018-06-04 06:15] VITALS: BP 101/40
[2018-06-04 06:26] LABS: ALBUMIN 2.1 g/dL (3.4-5.0); ALKALINE PHOSPHATASE 44 U/L (46-116); ALT (SGPT) 25 U/L (10-68); BILIRUBIN - TOTAL 0.51 mg/dL (0.2-1.3); CALC OSMOLALITY 287 mosm/kg (275-300); CALCIUM 7.5 mg/dL (8.5-10.1); CARBON DIOXIDE 24.8 mmol/L (21.0-32.0); CHLORIDE - SERUM 109 mmol/L (98-107); CREATININE - SERUM 0.6 mg/dL (0.6-1.3); GLUCOSE 80 mg/dL (74-106); POTASSIUM - SERUM 3.5 mmol/L (3.5-5.1); PROTEIN - SERUM 5.1 g/dL (6.4-8.2); SODIUM 145 mmol/L (136-145); UREA NITROGEN 12 mg/dL (7-18); eGFR NON AFRICAN AMERICAN > 90 mL/min (90-120)
[2018-06-04 08:00] VITALS: BP 94/34
[2018-06-04 11:38] VITALS: BP 104/41
[2018-06-04 14:54] VITALS: BP 107/51
--- NOTE | 2018-06-04 15:08 | MORECARE ---
CASE MANAGEMENT DISCHARGE SUMMARY PATIENT: TREASURE MONTELONGO UNIT: [id number] ADM DATE: 05/24/18 AGE: 72 : 45 SEX: F ROOM/BED: D.7477 AUTHOR: SUSAN,DOC PHYSICIAN: REFERRING PHYSICIAN: RAEANN SAMUELS MD DATE OF SERVICE: 06/04/18 Discharge Plan Patient Name: TREASURE MONTELONGO Facility: [facility]:[place] : 1945 Planned Disposition: Home with Home Health Anticipated Discharge Date: 06/04/18 Discharge Date: Expected LOS: 11 Initial Reviewer: [id number] Initial Review Date: 05/27/2018 Generated: 06/04/18 4:08 pm Comments DCP- Discharge Planning Updated by [email or web address]: Tang Bejarano on 06/04/18 2:[address] Patient Name: TREASURE MONTELONGO Encounter No: [id number] : 1945 Primary Insurance: MEDICARE A & B Anticipated DC Date: 06-04-2018 Planned Disposition: Home with Home Health External Planned Provider: [facility] DCP follow-up note: CM RECEIVED DISCHARGE ORDERS, NOTIFIED [facility] OF [facility]. CM FAXED DISCHARGE INFORMATION TO [facility] AT [phone]. COMMUNITY HEALTH NURSING DIRECTOR NURSE NOTIFIED. Horizontal Boring Mill Operator: Tang Bejarano DCP- Discharge Planning Updated by [id number]: Tang Bejarano on 06/03/18 3:[address] Patient Name: TREASURE MONTELONGO Encounter No: [id number] : 1945 Primary Insurance: MEDICARE A & B Anticipated DC Date: Planned Disposition: Home with Home Health External Planned Provider: [facility] DCP follow-up note: CM RECEIVED DISCHARGE PLANNING ORDER, MET WITH PT IN ROOM TO DISCUSS DISCHARGE PLANNIG AND NEEDS. PT REPORTS PLAN TO GO HOME WITH [facility] RESUMPTION. PT DENIES FURTHER NEEDS FROM CM, IMPORTANT MESSAGE FROM MEDICARE PROVIDED AND EXPLAINED CM FAXED HOSPITAL UPDATE TO [facility] AT [phone]. FOR DISCHARGE, NOTIFY [facility], [phone], FAX DISCHARGE INFORMATION TO [facility] AT [phone]. CM TO CONTINUE TO FOLLOW AND ASSIST NEEDED. Horizontal Boring Mill Operator: Tang Bejarano DCP- Discharge Planning Updated by [id number]: Tang Bejarano on 05/29/18 1:[address] Patient Name: TREASURE MONTELONGO Encounter No: [id number] : 1945 Primary Insurance: MEDICARE A & B Anticipated DC Date: Planned Disposition: Home with Home Health External Planned Provider: [facility] DCP follow-up note: CM RECEIVED CALL FROM PT WITH REQUEST TO SPEAK TO HER. CM MET WITH PT WHO INFORMED CM THAT SHE IS NOT GETTING GOOD CARE AND HAS CALLED THE WOUND/OSTOMY CLINICAL NURSE SPECIALIST. WOUND/OSTOMY CLINICAL NURSE SPECIALIST ARRIVED AND DISCUSSED CARE COMPLAINT WITH PT. PT DENIES FURTHER NEEDS FROM CM, REPORTS SHE MAY BE GOING HOME IN THE NEXT DAY OR SO. IMPORTANT MESSAGE FROM MEDICARE PROVIDED AND EXPLAINED. CM NOTIFIED [facility] OF [facility]. CM FAXED HOSPITAL UPDATE TO [facility] AT [phone]. FOR DISCHARGE, NOTIFY [facility], [phone], FAX DISCHARGE INFORMATION TO [facility] AT [phone]. CM TO CONTINUE TO FOLLOW AND ASSIST NEEDED. Horizontal Boring Mill Operator: Tang Bejarano MIP- Discharge Planning Updated by [id number]: Tang Bejarano on 05/27/18 4:[address] Patient Name: TREASURE MONTELONGO Admission Status: ER Accout number: [id number] Admission Date: 05-24-2018 : 1945 Admission Diagnosis:UNSPECIFIED ATRIAL FIBRILLATION Attending: RAEANN SAMUELS Current LOS: 3 Anticipated DC Date: Planned Disposition: Home with Home Health Primary Insurance: MEDICARE A & B PLANNED EXTERNAL PROVIDER: [facility] Discharge Planning Comments: CM MET WITH PT IN ROOM TO DISCUSS DISCHARGE PLANNING AND NEEDS. PT REPORTS LIVING AT HOME INDEPENDENTLY WITH HER COUSIN. PT HASCANE AND ROLLING WALKER WITH NO MEDICAL EQUIPMENT PROVIDER PREFERNCE. PT HAS HOME HEALTH WITH [facility].. CM DISCUSSED AVAILABILITY OF HOME HEALTH, REHAB SERVICES AND MEDICAL EQUIPMENT. PT DENIES DISCHARGE NEEDS OTHER THAN HOME HEALTH RESUMPTION WITH [facility]. PT REPORTS HER COUSIN WILL PICK HER UP FOR DISCHARGE HOME. CHOICE LISTING PROVIDED FOR HOME HEALTH, PT SIGNED CHOICE FOR [facility]. CM SPOKE TO V[facility] OF [facility], PT WAS ADMITTED FOR HOME HEALTH AND THEY CAN RESUME ON DISCHARGE HOME. FOR DISCHARGE, NOTIFY [facility], [phone], FAX DISCHARGE INFORMATION TO CARE AT [phone]. CM TO CONTINUE TO FOLLOW AND ASSIST NEEDED. Horizontal Boring Mill Operator: Tang Bejarano DCPIA - Discharge Planning Initial Assessment Updated by MEREDITH: Tang Bejarano on 05/27/18 5:53 pm * Is the patient Alert and Oriented? Yes * How many steps to enter\exit or inside your home? NONE * PCP DR. SAMUELS * Pharmacy [facility] * Preadmission Environment Home with Family * ADLs Independent * Equipment Cane Rolling Walker * Other Equipment NO MEDICAL EQUIPMENT PROVIDER PREFERENCE * List name and contact numbers for known caregivers / representatives who currently or will assist patient after discharge: LUL ARBEN, HOLLEYSIN, * Verbal permission to speak to the caregivers and representatives has been obtained from the patient. N/A * Community resources currently utilized Home Health * Please name any agencies selected above. [facility] * Additional services required to return to the preadmission environment? No * Can the patient safely return to the preadmission environment? Yes * Has this patient been hospitalized within the prior 30 days at any hospital? No Coverage Notice Reviewer: [id number] Bejarano Notice Issued Date-Time: 05/27/2018 10:35 Notice Type: Patient Choice Letter Notice Delivered To: Patient Relationship to Patient: Seating Upholsterer Name: Delivery Method: HAND - Hand Delivered Mary Beth Days: Prior Verbal Notification: Recipient Understood Notice: Yes Recipient Signature: Yes Med Rec Note Co-signed by Attending: Coverage Notice Comment: [facility] Reviewer: [id number] Bejarano Notice Issued Date-Time: 05/29/2018 10:25 Notice Type: IM Discharge Notice Notice Delivered To: Patient Relationship to Patient: Seating Upholsterer Name: Delivery Method: HAND - Hand Delivered Mary Beth Days: Prior Verbal Notification: Recipient Understood Notice: Yes Recipient Signature: Yes Med Rec Note Co-signed by Attending: Coverage Notice Comment: Reviewer: [id number] Bejarano Notice Issued Date-Time: 06/03/2018 14:27 Notice Type: IM Discharge Notice Notice Delivered To: Patient Relationship to Patient: Seating Upholsterer Name: Delivery Method: HAND - Hand Delivered Mary Beth Days: Prior Verbal Notification: Recipient Understood Notice: Yes Recipient Signature: Yes Med Rec Note Co-signed by Attending: Coverage Notice Comment: Last DP export: 06/03/18 3:12 p Patient Name: TREASURE MONTELONGO Page 52973 at 1508 All edits/amendments must be made on the electronic document DICTATION DATE: 06/04/18 150 TIG WELDER: JOLANTA 06/04/18 1508 RPT#: [id number] DC DATE: STATUS: ADM IN [facility] [address] [place] [address] END OF REPORT
== END 2018-06-04 11:53 | disposition home health service (06) | DRG 603 ==
LOC: D.ER 16:30 → D.M2 19:51
PROVIDERS: Family Medicine; ADMIT Family Medicine
DX: L03.116 Cellulitis of left lower limb (principal); I25.10 Atherosclerotic heart disease of native coronary artery without angina pectoris; I48.0 Paroxysmal atrial fibrillation; J43.9 Emphysema, unspecified; E03.9 Hypothyroidism, unspecified

== ENCOUNTER 2018-06-25 09:59 | Inpatient (IN) | payer MEDICARE ==
[~2018-06-25] VITALS: Ht 160 cm; Wt 95.3 kg
[~2018-06-25 09:59] MED LIST changes: +FUROSEMIDE20 MG PO; +KENALOG 0.1 % 115 GM TOPICAL
[2018-06-25 10:24] LABS: HEMATOCRIT 36.6 % (36.0-48.0); HEMOGLOBIN 12.2 g/dL (12-16); MCH 30.4 pg (26.0-34.0); MCHC 33.3 g/dL (31.0-37.0); MCV 91.3 fL (80.0-100.0); MEAN PLATELET VOLUME 8.7 fL (7.4-10.4); NEUTROPHILS 54.7 % (40-80); RBC 4.01 10x6/uL (4.00-5.40); WBC 4.3 10x3/uL (4.8-10.8)
[2018-06-25 10:25] LABS: PLATELET COUNT 206 10x3/uL (130-400)
[2018-06-25 10:35] LABS: APTT 27.1 SECONDS (22.8-39.4); INR 1.08 (0.85-1.17); PROTIME 13.5 SECONDS (11.6-15.0)
[2018-06-25 10:46] LABS: ALBUMIN 2.7 g/dL (3.4-5.0); ALKALINE PHOSPHATASE 66 U/L (46-116); ALT (SGPT) 16 U/L (10-68); BILIRUBIN - TOTAL 0.65 mg/dL (0.2-1.3); CALC OSMOLALITY 284 mosm/kg (275-300); CALCIUM 7.4 mg/dL (8.5-10.1); CARBON DIOXIDE 25.4 mmol/L (21.0-32.0); CHLORIDE - SERUM 107 mmol/L (98-107); CREATININE - SERUM 0.7 mg/dL (0.6-1.3); GLUCOSE 118 mg/dL (74-106); POTASSIUM - SERUM 3.1 mmol/L (3.5-5.1); PROTEIN - SERUM 5.9 g/dL (6.4-8.2); SODIUM 142 mmol/L (136-145); UREA NITROGEN 14 mg/dL (7-18); eGFR NON AFRICAN AMERICAN 87 mL/min (90-120)
[2018-06-25 10:57] LABS: CKMB 0.5 U/L (0.0-3.6); CREATINE KINASE 18 UL (21-215); PRO BNP 1564 pg/mL (0-125); TROPONIN-I < 0.017 ng/mL (0.000-0.060)
[2018-06-25 14:29] LABS: APPEARANCE SL CLDY (CLEAR); BACTERIA MANY /hpf (NONE SEEN); BILIRUBIN NEGATIVE (NEGATIVE); COLOR YELLOW (YELLOW); EPITHELIAL CELLS OCC /hpf (0-5); GLUCOSE NEGATIVE (NEGATIVE); KETONE NEGATIVE (NEGATIVE); NITRITE POSITIVE (NEGATIVE); PROTEIN NEGATIVE (NEGATIVE); UROBILINOGEN NORMAL (NORMAL); WHITE CELLS - URINE 0-5 /hpf (0-5)
--- NOTE | 2018-06-25 17:40 | NUR ---
PATIENT RECIEVED FROM ER VIA STRETCHER WITH DX OF PNEUMONIA AND UTI. PATIENT ALERT AND ORIENTED. RESPIRATIONS NONLABORED AND 02 SAT 98% ON ROOM AIR. PATIENT WITH RECENT HOSPITAL STAY FOR CELLULITIS TO RIGHT LOWER EXTREMITY. +4 EDEMA NOTED TO BLE WITH MILD REDNESS TEMP NORMAL TO TOUCH. NO OPEN AREAS NOTED. PATIENT REQUEST NOT TO WEAR PLEXI PULSES, SCD TO SMALL. ORIENTED PATIENT TO ROOM, CALL LIGHT IN REACH
[2018-06-25 17:49] VITALS: BP 132/81; BMI 37.2
--- NOTE | 2018-06-25 19:00 | NUR ---
BEDSIDE REPORT RECEIVED AND CARE OF PT ASSUMED. PT LYING IN LOW PATINO'S POSITION WITH EYES CLOSED. IV IN LEFT AC SALINE LOCKED. LUNGS SOUNDS DIMINISHED IN BASES. BLE WITH 4+ EDEMA AND DISCOLORED/ DARKENED. WILL MONITOR FOR NEEDS.
--- NOTE | 2018-06-25 20:00 | NUR ---
HS MEDICATIONS GIVEN. ASSISTED PT UP TO USE RESTROOM. WILL CONTINUE TO MONITOR FOR NEEDS. CALL LIGHT WITHIN REACH.
[2018-06-25 20:20] VITALS: BP 119/65
[2018-06-26 04:17] VITALS: BP 106/46
[2018-06-26 05:24] LABS: HEMATOCRIT 29.8 % (36.0-48.0); MCH 30.7 pg (26.0-34.0); MCHC 31.5 g/dL (31.0-37.0); MEAN PLATELET VOLUME 10.3 fL (7.4-10.4); RDW 19.7 % (11.5-14.5)
[2018-06-26 05:25] LABS: HEMOGLOBIN 9.4 g/dL (12-16); MCV 97.4 fL (80.0-100.0); PLATELET COUNT 64 10x3/uL (130-400); RBC 3.06 10x6/uL (4.00-5.40)
[2018-06-26 05:36] LABS: ALBUMIN 2.2 g/dL (3.4-5.0); ALKALINE PHOSPHATASE 52 U/L (46-116); CARBON DIOXIDE 26.2 mmol/L (21.0-32.0); CHLORIDE - SERUM 107 mmol/L (98-107); CREATININE - SERUM 0.6 mg/dL (0.6-1.3); GLUCOSE 78 mg/dL (74-106); PROTEIN - SERUM 4.9 g/dL (6.4-8.2); SODIUM 140 mmol/L (136-145); eGFR NON AFRICAN AMERICAN > 90 mL/min (90-120)
[2018-06-26 05:49] LABS: CALC OSMOLALITY 276 mosm/kg (275-300); UREA NITROGEN 9 mg/dL (7-18)
[2018-06-26 05:50] LABS: CALCIUM 6.9 mg/dL (8.5-10.1)
[2018-06-26 05:51] LABS: ALT (SGPT) 10 U/L (10-68)
--- NOTE | 2018-06-26 07:45 | NUR ---
PATIENT IN BED WITH IV INTACT. NO COMPLAINTS OR SIGNS OF DISTRESS. CALL LIGHT WITHIN REACH.
[2018-06-26 08:35] LABS: ANISOCYTOSIS OCC; EOSINOPHILS 1 % (0-7); HYPOCHROMASIA OCC; LYMPHOCYTES 32 % (15-50); MONOCYTES 18 % (2-11); NEUTROPHILS 48 % (40-80); PLATELET ESTIMATE DECREASED
[2018-06-26 09:38] VITALS: BP 119/66
[2018-06-26 13:55] VITALS: BP 120/65
--- NOTE | 2018-06-26 15:18 | MORECARE ---
CASE MANAGEMENT DISCHARGE SUMMARY PATIENT: TREASURE MONTELONGO UNIT: [id number] ADM DATE: 06/25/18 AGE: 72 : 45 SEX: F ROOM/BED: D.2214 AUTHOR: KAEL DAVIS PHYSICIAN: REFERRING PHYSICIAN: RAEANN SAMUELS MD DATE OF SERVICE: 06/26/18 Discharge Plan Patient Name: TREASURE MONTELONGO [facility] [facility] 1945 Planned Disposition: Home with Home Health Anticipated Discharge Date: Discharge Date: Expected LOS: Initial Reviewer: [email or web address] Initial Review Date: 06/25/2018 Generated: 06/26/18 4:18 pm DCPIA - Discharge Planning Initial Assessment Updated by [email or web address]: Nano Olson on 06/26/18 3:14 pm * Is the patient Alert and Oriented? Yes * How many steps to enter\exit or inside your home? * PCP ARVIND * [facility] * Preadmission Environment Home with Family * ADLs Partial Dependent * Partial ADLs (Assistance needed) Bathing * Equipment Cane Rolling Walker * List name and contact numbers for known caregivers / representatives who currently or will assist patient after discharge: NAHEED THEODORE ([phone]) * Verbal permission to speak to the caregivers and representatives has been obtained from the patient. Yes * Community resources currently utilized Home Health * Please name any agencies selected above. CURRENT WITH CARE IV * Additional services required to return to the preadmission environment? No * Can the patient safely return to the preadmission environment? Yes * Has this patient been hospitalized within the prior 30 days at any hospital? No Patient Name: TREASURE MONTELONGO Page 78227 at 1518 All edits/amendments must be made on the electronic document DICTATION DATE: 06/26/181517 LOOM OPERATOR: JOLANTA 06/26/181517 RPT#: [id number] DC DATE: STATUS: ADM IN [facility] [address] [place] [address] END OF REPORT
--- NOTE | 2018-06-26 15:29 | MORECARE ---
CASE MANAGEMENT DISCHARGE SUMMARY PATIENT: TREASURE MONTELONGO UNIT: [id number] ADM DATE: 06/25/18 AGE: 72 : 45 SEX: F ROOM/BED: D.2214 AUTHOR: SUSAN,DOC PHYSICIAN: REFERRING PHYSICIAN: RAEANN SAMUELS MD DATE OF SERVICE: 06/26/18 Discharge Plan Patient Name: TREASURE MONTELONGO Facility: [facility]:[place] : 1945 Planned Disposition: Home with Home Health Anticipated Discharge Date: Discharge Date: Expected LOS: Initial Reviewer: [email or web address] Initial Review Date: 06/25/2018 Generated: 06/26/18 4:29 pm Comments DCP- Discharge Planning Updated by [email or web address]: Nano Olson on 06/26/18 2:[address] Patient Name: TREASURE MONTELONGO Admission Status: ER Accout number: [id number] Admission Date: 06-25-2018 : 1945 Admission Diagnosis: Attending: RAEANN SAMUELS Current LOS: 1 Anticipated DC Date: Planned Disposition: Home with Home Health Primary Insurance: MEDICARE A & B Discharge Planning Comments: CM met with patient to complete initial dc planning assessment. CM educated patient on the CM role and verbal consent given by patient to complete assessment. Patient lives at home with his family and cousin. At discharge patient plans to return home and feels this is a safe discharge. Patient is current with Care [facility] she said that she has a nurse, PT, and aide who comes and helps her with her bath. Patient denied known discharge needs at this time. She uses a cane and a walker. She stated that her cousin will be driving her home. CM will continue to follow and will assist as needed with dc plans/needs. Middleware Engineer: Nano Olson DCPIA - Discharge Planning Initial Assessment Updated by [email or web address]: Nano Olson on 06/26/18 3:14 pm * Is the patient Alert and Oriented? Yes * How many steps to enter\exit or inside your home? * PCP ARVIND * [facility] * Preadmission Environment Home with Family * ADLs Partial Dependent * Partial ADLs (Assistance needed) Bathing * Equipment Cane Rolling Walker * List name and contact numbers for known caregivers / representatives who currently or will assist patient after discharge: NAHEED ARBEN ([phone]) * Verbal permission to speak to the caregivers and representatives has been obtained from the patient. Yes * Community resources currently utilized Home Health * Please name any agencies selected above. CURRENT WITH CARE IV * Additional services required to return to the preadmission environment? No * Can the patient safely return to the preadmission environment? Yes * Has this patient been hospitalized within the prior 30 days at any hospital? No Last DP export: 06/26/18 2:18 p Patient Name: TREASURE MONTELONGO Page 25776 at 1529 All edits/amendments must be made on the electronic document DICTATION DATE: 06/26/181528 ADDICTION COUNSELOR: JOLANTA 06/26/181528 RPT#: [id number] DC DATE: STATUS: ADM IN [facility] [address] [place] [address] END OF REPORT
[2018-06-26 18:07] VITALS: BP 128/58
--- NOTE | 2018-06-26 18:55 | NUR ---
PATIENT IN BED WITH IV INTACT. NO COMPLAINTS OR SIGNS OF DISTRESS. CALL LIGHT WITHIN REACH.
--- NOTE | 2018-06-26 19:00 | NUR ---
BEDSIDE REPORT RECEIVE AND CARE OF PT ASSUMED. PT LYING IN LOW PATINO'S POSITION WATCHING TV. IV IN LEFT AC SALINE LOCKED. WILL MONITOR FOR NEEDS.
--- NOTE | 2018-06-26 20:33 | NUR ---
HS MEDICATIONS GIVEN. WILL CONTINUE TO MONITOR FOR NEEDS.
[2018-06-26 20:53] VITALS: BP 126/66
--- NOTE | 2018-06-26 22:04 | NUR ---
PLACED LEAF SIZE PICKER ON PT...READING 78 SR AT THIS ASSESSMENT.
[2018-06-27 01:19] VITALS: BP 124/64
[2018-06-27 05:27] VITALS: BP 127/58
[2018-06-27 06:42] LABS: BASOPHILS 0.6 % (0-2); EOSINOPHILS 3.8 % (0-7); HEMATOCRIT 34.3 % (36.0-48.0); IMMATURE GRANULOCYTES 0.6 % (0-5); LYMPHOCYTES 40.1 % (15-50); MCH 29.4 pg (26.0-34.0); MCHC 32.1 g/dL (31.0-37.0); MEAN PLATELET VOLUME 9.5 fL (7.4-10.4); MONOCYTES 10.8 % (2-11); NEUTROPHILS 44.1 % (40-80); RDW 16.1 % (11.5-14.5)
[2018-06-27 06:48] LABS: MCV 91.7 fL (80.0-100.0); PLATELET COUNT 217 10x3/uL (130-400); RBC 3.74 10x6/uL (4.00-5.40); WBC 4.7 10x3/uL (4.8-10.8)
[2018-06-27 07:15] LABS: CALC OSMOLALITY 277 mosm/kg (275-300); CALCIUM 7.1 mg/dL (8.5-10.1); CARBON DIOXIDE 27.4 mmol/L (21.0-32.0); CHLORIDE - SERUM 106 mmol/L (98-107); CREATININE - SERUM 0.6 mg/dL (0.6-1.3); GLUCOSE 76 mg/dL (74-106); POTASSIUM - SERUM 3.2 mmol/L (3.5-5.1); SODIUM 141 mmol/L (136-145); UREA NITROGEN 6 mg/dL (7-18); eGFR NON AFRICAN AMERICAN > 90 mL/min (90-120)
--- NOTE | 2018-06-27 07:45 | NUR ---
PATIENT IN BED WITH IV INTACT. NO COMPLAINTS OR SIGNS OF DISTRESS. EYES CLOSED RESTING QUIETLY. CALL LIGHT WITHIN REACH.
[2018-06-27 09:19] VITALS: BP 117/70
[2018-06-27 14:25] VITALS: BP 145/60
--- NOTE | 2018-06-27 17:38 | NUR ---
PATIENT IN BED READING BOOK AT THIS TIME WITH NO COMPLAINTS. IV INTACT. CALL LIGHT WITHIN REACH.
[2018-06-27 18:05] VITALS: BP 116/59
--- NOTE | 2018-06-27 19:00 | NUR ---
REPORT RECEIVED AND CARE OF PT ASSUMED. PT LYING IN LOW PATINO'S POSITION WATCHING TV. IV IN LEFT AC SALINE LOCKED. TELEMETRY IN PLACE AND READING SR AT THIS ASSESSMENT. WILL MONITOR FOR NEEDS.
[2018-06-27 20:00] VITALS: BP 125/80
--- NOTE | 2018-06-27 21:30 | NUR ---
PT BATHED AND ALL BEDDING AND GOWN CHANGED.
--- NOTE | 2018-06-27 22:11 | NUR ---
HS MEDICATIONS GIVEN TO INCLUDE RESTORIL PER REQUEST FOR SLEEP, PER PRN ORDER. WILL CONTIUE TO MONITOR FOR NEEDS.
[2018-06-28] VITALS: BP 128/79
[2018-06-28 04:00] VITALS: BP 126/70
--- NOTE | 2018-06-28 05:30 | NUR ---
PT DEVELOPED RED RASH ON ARMS AND CHEST AFTER BATH LAST PM...STATES IT COMES AND GOES, BUT STARTED PRIOR TO RECEIVING ANTIBIOTICS.
[2018-06-28 05:58] LABS: BASOPHILS 0.8 % (0-2); EOSINOPHILS 3.6 % (0-7); HEMOGLOBIN 11.4 g/dL (12-16); IMMATURE GRANULOCYTES 0.6 % (0-5); LYMPHOCYTES 39.7 % (15-50); MCH 29.3 pg (26.0-34.0); MCHC 31.7 g/dL (31.0-37.0); MCV 92.5 fL (80.0-100.0); MEAN PLATELET VOLUME 9.3 fL (7.4-10.4); MONOCYTES 12.1 % (2-11); NEUTROPHILS 43.2 % (40-80); PLATELET COUNT 224 10x3/uL (130-400); RBC 3.89 10x6/uL (4.00-5.40); WBC 5.1 10x3/uL (4.8-10.8)
--- NOTE | 2018-06-28 06:19 | NUR ---
PT WITH ITCHY RASH ON ARMS AND CHEST. CALLED MD HAND SPRAY OPERATOR AND RECEIVED ORDER FOR BENADRYL 25MG PO Q6HR PRN.
[2018-06-28 06:26] LABS: CALC OSMOLALITY 277 mosm/kg (275-300); CALCIUM 7.4 mg/dL (8.5-10.1); CARBON DIOXIDE 29.5 mmol/L (21.0-32.0); CHLORIDE - SERUM 106 mmol/L (98-107); CREATININE - SERUM 0.6 mg/dL (0.6-1.3); GLUCOSE 89 mg/dL (74-106); SODIUM 141 mmol/L (136-145); UREA NITROGEN 7 mg/dL (7-18); eGFR NON AFRICAN AMERICAN > 90 mL/min (90-120)
[2018-06-28 06:27] LABS: POTASSIUM - SERUM 3.8 mmol/L (3.5-5.1)
--- NOTE | 2018-06-28 07:45 | NUR ---
PATIENT IN BED WITH EYES OPEN. DENIES ANY NEEDS AT THIS TIME. IV INTACT. CALL LIGHT WITHIN REACH.
[2018-06-28 10:10] VITALS: BP 129/52
[2018-06-28 14:23] VITALS: BP 141/69
[2018-06-28 16:00] VITALS: BP 122/55
--- NOTE | 2018-06-28 19:00 | NUR ---
PATIENT RECIEVED BENADRYL FOR ITCHING. RASH TO RIGHT ARM AND LEFT ARM FROM TAPE ( PATIENT STATES.) WILL REPORT TO NIGHT NURSE JESSY TOLBERT.
--- NOTE | 2018-06-28 19:00 | NUR ---
REPORT RECEIVED AND CARE OF PT ASSUMED. PT LYING IN HIGH PATINO'S POSITION READING A BOOK. IV IN LEFT AC SALINE LOCKED. WILL MONITOR FOR NEEDS.
[2018-06-28 20:00] VITALS: BP 117/54
--- NOTE | 2018-06-28 21:30 | NUR ---
HS MEDICATIONS GIVEN TO INCLUDE RESTORIL PO PER REQUEST PER PRN ORDER. WILL CONTINUE TO MONITOR FOR NEEDS.
[2018-06-29] VITALS: BP 120/61
--- NOTE | 2018-06-29 01:42 | NUR ---
GAVE BENADRYL 25 MG PO PER REQUEST FOR ITCHING.
[2018-06-29 03:00] VITALS: BP 124/59
[2018-06-29 04:51] LABS: BASOPHILS 0.5 % (0-2); HEMATOCRIT 37.9 % (36.0-48.0); HEMOGLOBIN 12.2 g/dL (12-16); IMMATURE GRANULOCYTES 0.5 % (0-5); LYMPHOCYTES 39.4 % (15-50); MCH 29.5 pg (26.0-34.0); MCHC 32.2 g/dL (31.0-37.0); MCV 91.5 fL (80.0-100.0); MEAN PLATELET VOLUME 9.5 fL (7.4-10.4); MONOCYTES 11.2 % (2-11); NEUTROPHILS 44.4 % (40-80); PLATELET COUNT 219 10x3/uL (130-400); RBC 4.14 10x6/uL (4.00-5.40); RDW 15.9 % (11.5-14.5); WBC 5.7 10x3/uL (4.8-10.8)
[2018-06-29 05:01] LABS: CALC OSMOLALITY 278 mosm/kg (275-300); CARBON DIOXIDE 26.1 mmol/L (21.0-32.0); CHLORIDE - SERUM 105 mmol/L (98-107); CREATININE - SERUM 0.7 mg/dL (0.6-1.3); GLUCOSE 94 mg/dL (74-106); POTASSIUM - SERUM 4.2 mmol/L (3.5-5.1); SODIUM 141 mmol/L (136-145); UREA NITROGEN 7 mg/dL (7-18); eGFR NON AFRICAN AMERICAN 87 mL/min (90-120)
[2018-06-29 09:23] VITALS: BP 124/77
--- NOTE | 2018-06-29 09:45 | NUR ---
PATIENT IN BED WITH IV INTACT. NO COMPLAINTS OR SIGNS OF DISTRESS. CALL LIGHT WITHIN REACH.
--- NOTE | 2018-06-29 13:00 | NUR ---
PATIENT UP AMBULATING EARLIER AND HEART RATE WAS 115 ATRIAL FIB. PATIENT HAS A HISTORY OF A FIB. WENT TO A FLUTTER AND BACK TO WHEN PATIENT STOPPED AMBULATING. PATIENT HAD NO DISTRESS OR DISCOMFORT. IV INTACT. NO COMPLAINTS. CALL LIGHT WITHIN REACH.
[2018-06-29 13:49] VITALS: BP 98/56
[2018-06-29 18:34] VITALS: BP 121/45
--- NOTE | 2018-06-29 18:45 | NUR ---
PATIENT IN BED WITH IV INTACT. NO COMPLAINTS OR SIGNS OF DISTRESS. CALL LIGHT WITHIN REACH.
--- NOTE | 2018-06-29 20:00 | NUR ---
LYING IN BED WATCHING TV. ALERT AND ORIENTED X4. TALKATIVE WITH STAFF. RED RAISED RASH NOTED TO BOTH UPPER ARMS AND CHEST THAT WAS PRE-EXISTING. RESP EVEN AND NONLABORED. BBS CTA BUT DIMINISHED IN BLL. NONPROD COUGH NOTED AT TIMES. BRUISES NOTED TO BUE. LLE SLIGHTLY RED. NOT WEARING O2. DENIES SOB. TELEMETRY SHOWS SR WITH RATE OF 93. SALINE LOCK NOTED TO LT AC. DENIES PAIN. NO DISTRESS. CL IN REACH.
[2018-06-29 21:09] VITALS: BP 120/54
[2018-06-30 00:23] VITALS: BP 134/60
--- NOTE | 2018-06-30 00:59 | NUR ---
HASNT SLEPT TONIGHT. LYING IN BED USING IPAD. NO DISTRESS. CL IN REACH.
[2018-06-30 05:09] VITALS: BP 114/49
[2018-06-30 06:08] LABS: BASOPHILS 0.9 % (0-2); HEMATOCRIT 37.2 % (36.0-48.0); HEMOGLOBIN 11.7 g/dL (12-16); IMMATURE GRANULOCYTES 0.4 % (0-5); LYMPHOCYTES 36.1 % (15-50); MCH 29.3 pg (26.0-34.0); MCHC 31.5 g/dL (31.0-37.0); MEAN PLATELET VOLUME 9.6 fL (7.4-10.4); MONOCYTES 12.5 % (2-11); NEUTROPHILS 46.1 % (40-80); PLATELET COUNT 231 10x3/uL (130-400); RDW 15.7 % (11.5-14.5); WBC 5.7 10x3/uL (4.8-10.8)
[2018-06-30 06:15] LABS: ANION GAP 14.4 mmol/L (8-16); CARBON DIOXIDE 24.9 mmol/L (21.0-32.0); CREATININE - SERUM 0.8 mg/dL (0.6-1.3); POTASSIUM - SERUM 4.3 mmol/L (3.5-5.1)
--- NOTE | 2018-06-30 07:30 | NUR ---
PT ASSESSMENT COMPLETE AWAKE AND ALERT ORINETED X 3 LUNGS CLAER BILAT. NO DISTRESS NOTED VOICES ALL NEEDS OT STAFF CALL L8IGHT IN REACH. DENIES PAIN OR DISCOMFORT AT THIS TIME.
[2018-06-30 08:18] VITALS: BP 119/59
[2018-06-30 12:21] VITALS: BP 102/84
--- NOTE | 2018-06-30 15:00 | NUR ---
PT WITH NO DISTRESS NOTED VOICES ALL NEEDS TO STAFF. UP AD JESUS IN ROOM TELEMETERY IN PLACE TO MONITOR RATE AND RYTHM.
[2018-06-30 16:30] VITALS: BP 118/52
--- NOTE | 2018-06-30 18:51 | NUR ---
I have reviewed this patient and I concur with the Shift Assessment completed by the Licensed Practical Nurse today this shift.
--- NOTE | 2018-06-30 20:10 | NUR ---
PT RESTING IN BED. ALERT AND ORIENTED. NO SIGNS OF DISTRESS. BREATHING EVEN AND UNLABORED. PT STATES NO PROBLEMS AT THIS TIME. IV SITE LT AC DRESSING CLEAN DRY AND INTACT. NO SIGNS OF INFECTION. TELE MONITOR ON 72 SINUS. BOWEL SOUNDS ACTIVE. SOME LOWER LEG SWELLING PRESENT. WILL CONTINUE PLAN OF CARE. CALL LIGHT IN REACH. BED LOWERED AND LOCKED.
[2018-06-30 21:05] VITALS: BP 120/60
--- NOTE | 2018-07-01 02:53 | NUR ---
I have reviewed this patient and I concur with the Shift Assessment completed by the Licensed Practical Nurse today this shift.
[2018-07-01 04:05] LABS: BASOPHILS 0.8 % (0-2); EOSINOPHILS 4.5 % (0-7); HEMATOCRIT 37.6 % (36.0-48.0); HEMOGLOBIN 12.1 g/dL (12-16); IMMATURE GRANULOCYTES 0.6 % (0-5); LYMPHOCYTES 36.1 % (15-50); MCH 29.7 pg (26.0-34.0); MCHC 32.2 g/dL (31.0-37.0); MCV 92.4 fL (80.0-100.0); MEAN PLATELET VOLUME 9.2 fL (7.4-10.4); MONOCYTES 11.2 % (2-11); NEUTROPHILS 46.8 % (40-80); PLATELET COUNT 230 10x3/uL (130-400); RBC 4.07 10x6/uL (4.00-5.40); RDW 15.4 % (11.5-14.5); WBC 5.3 10x3/uL (4.8-10.8)
[2018-07-01 04:12] LABS: CALC OSMOLALITY 276 mosm/kg (275-300); CALCIUM 8.6 mg/dL (8.5-10.1); CARBON DIOXIDE 26.3 mmol/L (21.0-32.0); CHLORIDE - SERUM 104 mmol/L (98-107); CREATININE - SERUM 0.7 mg/dL (0.6-1.3); GLUCOSE 94 mg/dL (74-106); POTASSIUM - SERUM 4.4 mmol/L (3.5-5.1); SODIUM 139 mmol/L (136-145); UREA NITROGEN 9 mg/dL (7-18); eGFR NON AFRICAN AMERICAN 87 mL/min (90-120)
[2018-07-01 04:43] VITALS: BP 114/57
[2018-07-01 08:55] VITALS: BP 123/61
--- NOTE | 2018-07-01 11:26 | NUR ---
PATIENT SITTING IN CHAIR. C/O FEELING LIGHT HEADED WHILE SITTING ABOUT 30 MINUTES AFTER WALING WITH PT. VS: T 97.7, BP 126/70, MO 84, SPO2 95% RA, RR 22. REPORTS FEELING BETTER AT THIS TIME. ADVISED TO TRY TO TAKE SLOWER, DEEP BREATHS. ALL NEEDS MET AT THIS TIME.
[2018-07-01 11:35] VITALS: BP 126/70
--- NOTE | 2018-07-01 13:42 | NUR ---
I have reviewed this patient and I concur with the Shift Assessment completed by the Licensed Practical Nurse today this shift.
--- NOTE | 2018-07-01 16:03 | NUR ---
LEONARDO FROM TELEMETRY MONITORS REPORTED PATIENT'S HR AT 130. PATIENT ASYMPTOMATIC. STATES, "I FEEL FINE." HR DECREASED TO 120, PER MONITOR, WHILE IN THE ROOM. BENADRYL 25MG WAS GIVEN AT 1542.
[2018-07-01 16:28] VITALS: BP 121/68
--- NOTE | 2018-07-01 20:10 | NUR ---
PT RESTING IN BED. ALERT AND ORIENTED. NO SIGNS OF DISTRESS. BREATHING EVEN AND UNLABORED. PT STATES NO PROBLEMS AT THIS TIME. IV SITE RT AC DRESSING CLEAN DRY AND INTACT. NO SIGNS OF INFECTION. SKIN CLEAN DRY AND INTACT. BOWEL SOUNDS ACTIVE. SOME LOWER LEG SWELLING PRESENT. TELE MONTIOR ON 88 NORMAL SINUS. WILL CONTINUE PLAN OF CARE. CALL LIGHT IN REACH. BED LOWERED AND LOCKED. BED RAILS UP X1.
[2018-07-01 21:03] VITALS: BP 140/80
[2018-07-02 00:10] VITALS: BP 113/53
[2018-07-02 04:45] VITALS: BP 124/54
--- NOTE | 2018-07-02 07:30 | NUR ---
REPORT RECIEVED AND CARE ASSUMED NO DISTRESS NTOED VOICES ALL NEEDS TO STAFF CALL LIGHT INREACH SIDE RAILS UPX 2
[2018-07-02 10:08] VITALS: BP 110/62
[2018-07-02 10:44] VITALS: Ht 160 cm; Wt 95.3 kg
[2018-07-02 13:37] VITALS: BP 91/59
--- NOTE | 2018-07-02 15:13 | NUR ---
I have reviewed this patient and I concur with the Shift Assessment completed by the Licensed Practical Nurse today this shift.
--- NOTE | 2018-07-02 16:42 | NUR ---
CALLED AND SPOKE WITH DR CARRASQUILLO RE: ORDER FOR ONE TIME DOSING OF BETAPACE HOWEVER PT IS IN SR ON MONITOR AND RATE IS 78 B/P 91/66 DR CARRASQUILLO GAVE ORDERS TO HOLD MEDICATION.
[2018-07-02 17:26] VITALS: BP 103/49
[2018-07-02 20:37] VITALS: BP 102/52
--- NOTE | 2018-07-02 21:37 | NUR ---
HS MEDICATIONS GIVEN TO INCLUDE RESTORIL PO PER REQUEST FOR SLEEP. WILL CONTINUE TO MONITOR FOR NEEDS.
--- NOTE | 2018-07-02 21:45 | NUR ---
TRADED PT'S WITH PACO...ASSUMED CARE OF PT.
[2018-07-03 00:55] VITALS: BP 105/64
[2018-07-03 05:33] VITALS: BP 109/38
--- NOTE | 2018-07-03 07:51 | NUR ---
PT RESTING IN BED WITH EYES OPEN. AAOX4. NO S/S OF ACUTE DISTRESS. CL IN PLACE.
[2018-07-03 08:54] VITALS: BP 134/53
[2018-07-03 12:11] VITALS: BP 101/44
[2018-07-03 16:58] VITALS: BP 106/50
--- NOTE | 2018-07-03 18:12 | NUR ---
PT UP AT SINK. DENIES ANY NEEDS. NO S/S OF ACUTE DISTRESS. CL IN PLACE.
[2018-07-03 20:00] VITALS: BP 97/43
--- NOTE | 2018-07-03 20:20 | NUR ---
PT RESTING IN BED. ALERT AND ORIENTED. NO SIGNS OF DISTRESS. BREATHING EVEN AND UNLABORED. PT STATES NO PROBLEMS AT THIS TIME. IV SITE RT FA DRESSING CLEAN DRY AND INTACT. NO SIGNS OF INFECTION. BOWEL SOUNDS ACITVE. TELE MONTIOR ON 71 NORMAL SINUS. SOME LOWER LEG SWELLING PRESENT. WILL CONTINUE PLAN OF CARE. CALL LIGHT IN REACH. BED LOWERED AND LOCKED.
[2018-07-04] VITALS: BP 97/56
[2018-07-04 03:00] VITALS: BP 94/48
--- NOTE | 2018-07-04 05:40 | NUR ---
PT RESTING IN BED. EYES CLOSED. NO SIGNS OF DISTRESS. BREATHING EVEN AND UNLABORED. CALL LIGHT IN REACH. BED LOWERED AND LOCKED. WILL CONTINUE PLAN OF CARE.
--- NOTE | 2018-07-04 06:07 | NUR ---
I have reviewed this patient and I concur with the Shift Assessment completed by the Licensed Practical Nurse today this shift.
--- NOTE | 2018-07-04 08:00 | NUR ---
MORNING ASSESSMENT COMPLETE. SEE ASSESSMENT FLOWSHEET FOR FURTHER DETAILS. PT LYING IN BED AAO X4 TO PERSON, PLACE, TIME, AND SITUATION. DENIES NEEDS AT THIS TIME. CL IN REACH
[2018-07-04 09:57] VITALS: BP 100/52
[2018-07-04 12:47] VITALS: BP 97/43
[2018-07-04] MEDS ORDERED: BETAPACE 120 M120 MG PO (15:57)
[2018-07-04 18:14] VITALS: BP 113/64
--- NOTE | 2018-07-04 19:12 | MORECARE ---
CASE MANAGEMENT DISCHARGE SUMMARY PATIENT: TREASURE MONTELONGO UNIT: [id number] ADM DATE: 06/25/18 AGE: 72 : 45 SEX: F ROOM/BED: D.2214 AUTHOR: SUSAN,DOC PHYSICIAN: REFERRING PHYSICIAN: RAEANN SAMUELS MD DATE OF SERVICE: 07/04/18 Discharge Plan Patient Name: TREASURE MONTELONGO Facility: [facility]:[place] : 1945 Planned Disposition: Home with Home Health Anticipated Discharge Date: 07/04/18 Discharge Date: Expected LOS: 9 Initial Reviewer: [email or web address] Initial Review Date: 06/25/2018 Generated: 07/04/18 8:12 pm Comments DCP- Discharge Planning Updated by [email or web address]: Clair Salas on 07/04/18 6:[address] DISCHARGED TO HOME THIS LATE PM. 1822 TC TO CARE IV ANSWERING SERVICE. SPOKE W/ SEAN. ADVISED OF DISCHARGE TO HOME W/ RESUMPTION OF CARE. FAXED DISCHARGE ORDERS, MED LIST AND DISCHARGE SUMMARY TO [phone]. DCP- Discharge Planning Updated by [email or web address]: Nano Olson on 06/26/18 2:[address] Patient Name: TREASURE MONTELONGO Admission Status: ER Accout number: [id number] Admission Date: 06-25-2018 : 1945 Admission Diagnosis: Attending: RAEANN SAMUELS Current LOS: 1 Anticipated DC Date: Planned Disposition: Home with Home Health Primary Insurance: MEDICARE A & B Discharge Planning Comments: CM met with patient to complete initial dc planning assessment. CM educated patient on the CM role and verbal consent given by patient to complete assessment. Patient lives at home with his family and cousin. At discharge patient plans to return home and feels this is a safe discharge. Patient is current with Care [facility] she said that she has a nurse, PT, and aide who comes and helps her with her bath. Patient denied known discharge needs at this time. She uses a cane and a walker. She stated that her cousin will be driving her home. CM will continue to follow and will assist as needed with dc plans/needs. Inhalation Therapist: Nano Olson DCPIA - Discharge Planning Initial Assessment Updated by [email or web address]: Nano Olson on 06/26/18 3:14 pm * Is the patient Alert and Oriented? Yes * How many steps to enter\exit or inside your home? * PCP ARVIND * [facility] * Preadmission Environment Home with Family * ADLs Partial Dependent * Partial ADLs (Assistance needed) Bathing * Equipment Cane Rolling Walker * List name and contact numbers for known caregivers / representatives who currently or will assist patient after discharge: NAHEED THEODORE ([phone]) * Verbal permission to speak to the caregivers and representatives has been obtained from the patient. Yes * Community resources currently utilized Home Health * Please name any agencies selected above. CURRENT WITH CARE IV * Additional services required to return to the preadmission environment? No * Can the patient safely return to the preadmission environment? Yes * Has this patient been hospitalized within the prior 30 days at any hospital? No Last DP export: 06/26/18 2:29 p Patient Name: TREASURE MONTELONGO Page 78196 at 1912 All edits/amendments must be made on the electronic document DICTATION DATE: 07/04/181910 RAIL WASHER: JOLANTA 07/04/181910 RPT#: [id number] DC DATE: STATUS: ADM IN [facility] [address] [place] [address] END OF REPORT
--- NOTE | 2018-07-05 20:42 | MORECARE ---
CASE MANAGEMENT DISCHARGE SUMMARY PATIENT: TREASURE MONTELONGO UNIT: [id number] ADM DATE: 06/25/18 AGE: 72 : 45 SEX: F ROOM/BED: D.2214 AUTHOR: SUSAN,DOC PHYSICIAN: REFERRING PHYSICIAN: RAEANN SAMUELS MD DATE OF SERVICE: 07/05/18 Discharge Plan Patient Name: TREASURE MONTELONGO Facility: [facility]:[place] : 1945 Planned Disposition: Home with Home Health Anticipated Discharge Date: 07/04/18 Discharge Date: 07/04/2018 Expected LOS: 9 Initial Reviewer: [email or web address] Initial Review Date: 06/25/2018 Generated: 07/05/18 9:42 pm Comments DCP- Discharge Planning Updated by [email or web address]: Clair Salas on 07/05/18 7:[address] LATE ENTRY SPOKE W/ SEAN THIS . CONFIRMED RECEIPT OF FAX, PLAN FOR HOME HEALTH TO VISIT FRIDAY. DCP- Discharge Planning Updated by [email or web address]: Clair [place] on 07/04/18 6:[address] DISCHARGED TO HOME THIS LATE PM. 1822 TC TO CARE IV ANSWERING SERVICE. SPOKE W/ SEAN. ADVISED OF DISCHARGE TO HOME W/ RESUMPTION OF CARE. FAXED DISCHARGE ORDERS, MED LIST AND DISCHARGE SUMMARY TO [phone]. DCP- Discharge Planning Updated by [email or web address]: Nano Olson on 06/26/18 2:[address] Patient Name: TREASURE MONTELONGO Admission Status: ER Accout number: [id number] Admission Date: 06-25-2018 : 1945 Admission Diagnosis: Attending: RAEANN SAMUELS Current LOS: 1 Anticipated DC Date: Planned Disposition: Home with Home Health Primary Insurance: MEDICARE A & B Discharge Planning Comments: CM met with patient to complete initial dc planning assessment. CM educated patient on the CM role and verbal consent given by patient to complete assessment. Patient lives at home with his family and cousin. At discharge patient plans to return home and feels this is a safe discharge. Patient is current with Care [facility] she said that she has a nurse, PT, and aide who comes and helps her with her bath. Patient denied known discharge needs at this time. She uses a cane and a walker. She stated that her cousin will be driving her home. CM will continue to follow and will assist as needed with dc plans/needs. Lathing Supervisor: Nano Olson DCPIA - Discharge Planning Initial Assessment Updated by [email or web address]: Nano Olson on 06/26/18 3:14 pm * Is the patient Alert and Oriented? Yes * How many steps to enter\exit or inside your home? * PCP ARVIND * [facility] * Preadmission Environment Home with Family * ADLs Partial Dependent * Partial ADLs (Assistance needed) Bathing * Equipment Cane Rolling Walker * List name and contact numbers for known caregivers / representatives who currently or will assist patient after discharge: NAHEED THEODORE ([phone]) * Verbal permission to speak to the caregivers and representatives has been obtained from the patient. Yes * Community resources currently utilized Home Health * Please name any agencies selected above. CURRENT WITH CARE IV * Additional services required to return to the preadmission environment? No * Can the patient safely return to the preadmission environment? Yes * Has this patient been hospitalized within the prior 30 days at any hospital? No Last DP export: 07/04/18 6:12 p Patient Name: TREASURE MONTELONGO Page 28730 at 2041 All edits/amendments must be made on the electronic document DICTATION DATE: 07/05/182041 BILINGUAL SPEECH THERAPIST: JOLANTA 07/05/182041 RPT#: [id number] DC DATE:07/04/18 STATUS: DIS IN [facility] [address] [place] [address] END OF REPORT
--- NOTE | 2018-07-06 12:59 | MORECARE ---
CASE MANAGEMENT DISCHARGE SUMMARY PATIENT: TREASURE MONTELONGO UNIT: [id number] ADM DATE: 06/25/18 AGE: 72 : 45 SEX: F ROOM/BED: D.2214 AUTHOR: SUSAN,DOC PHYSICIAN: REFERRING PHYSICIAN: RAEANN SAMUELS MD DATE OF SERVICE: 07/06/18 Discharge Plan Patient Name: TREASURE MONTELONGO Facility: [facility]:[place] : 1945 Planned Disposition: Home with Home Health Anticipated Discharge Date: 07/04/18 Discharge Date: 07/04/2018 Expected LOS: 9 Initial Reviewer: [email or web address] Initial Review Date: 06/25/2018 Generated: 07/06/18 1:59 pm Comments DCP- Discharge Planning Updated by [email or web address]: Clair Salas on 07/05/18 7:[address] LATE ENTRY SPOKE W/ SEAN THIS . CONFIRMED RECEIPT OF FAX, PLAN FOR HOME HEALTH TO VISIT FRIDAY. DCP- Discharge Planning Updated by [email or web address]: Clair Lam[place] on 07/04/18 6:[address] DISCHARGED TO HOME THIS LATE PM. 1822 TC TO CARE IV ANSWERING SERVICE. SPOKE W/ SEAN. ADVISED OF DISCHARGE TO HOME W/ RESUMPTION OF CARE. FAXED DISCHARGE ORDERS, MED LIST AND DISCHARGE SUMMARY TO [phone]. DCP- Discharge Planning Updated by [email or web address]: Nano Olson on 06/26/18 2:[address] Patient Name: TREASURE MONTELONGO Admission Status: ER Accout number: [id number] Admission Date: 06-25-2018 : 1945 Admission Diagnosis: Attending: RAEANN SAMUELS Current LOS: 1 Anticipated DC Date: Planned Disposition: Home with Home Health Primary Insurance: MEDICARE A & B Discharge Planning Comments: CM met with patient to complete initial dc planning assessment. CM educated patient on the CM role and verbal consent given by patient to complete assessment. Patient lives at home with his family and cousin. At discharge patient plans to return home and feels this is a safe discharge. Patient is current with Care [facility] she said that she has a nurse, PT, and aide who comes and helps her with her bath. Patient denied known discharge needs at this time. She uses a cane and a walker. She stated that her cousin will be driving her home. CM will continue to follow and will assist as needed with dc plans/needs. Furnace Clerk: Nano Olson DCPIA - Discharge Planning Initial Assessment Updated by [email or web address]: Nano Olson on 06/26/18 3:14 pm * Is the patient Alert and Oriented? Yes * How many steps to enter\exit or inside your home? * PCP ARVIND * [facility] * Preadmission Environment Home with Family * ADLs Partial Dependent * Partial ADLs (Assistance needed) Bathing * Equipment Cane Rolling Walker * List name and contact numbers for known caregivers / representatives who currently or will assist patient after discharge: NAHEED THEODORE ([phone]) * Verbal permission to speak to the caregivers and representatives has been obtained from the patient. Yes * Community resources currently utilized Home Health * Please name any agencies selected above. CURRENT WITH CARE IV * Additional services required to return to the preadmission environment? No * Can the patient safely return to the preadmission environment? Yes * Has this patient been hospitalized within the prior 30 days at any hospital? No Last DP export: 07/05/18 7:42 p Patient Name: TREASURE MONTELONGO Page 36417 at 1259 All edits/amendments must be made on the electronic document DICTATION DATE: 07/06/181258 DIRECTOR OF HEALTH EDUCATION: JOLANTA 07/06/18 1250 RPT#: [id number] DC DATE:07/04/18 STATUS: DIS IN [facility] [address] [place] [address] END OF REPORT
== END 2018-07-04 19:13 | disposition home health service (06) | DRG 309 ==
LOC: D.ER 09:59 → D.MS 15:50 → D.EDHOLD 15:50 → D.MS 17:13
PROVIDERS: Family Medicine; ADMIT Family Medicine; ATTEND Family Medicine
DX: I48.91 Unspecified atrial fibrillation (principal); N39.0 Urinary tract infection, site not specified; J44.1 Chronic obstructive pulmonary disease with (acute) exacerbation; I50.9 Heart failure, unspecified; J44.9 Chronic obstructive pulmonary disease, unspecified; J43.9 Emphysema, unspecified

== ENCOUNTER 2019-03-30 11:02 | Outpatient (CLI) | payer MEDICARE ==
[2018-07-02 10:44] VITALS: BMI 37.2
[~2019-03-30 11:02] MED LIST changes: +BETAPACE 120 M120 MG PO
[2019-03-30] MEDS ORDERED: FUROSEMIDE20 MG PO (11:51)
[2019-03-30] MEDS ORDERED: OXYBUTYNIN CHLOR5 MG PO (11:52)
[2019-03-30] MEDS ORDERED: XARELTO15 MG (11:52)
--- NOTE | 2019-03-30 12:03 | NUR ---
PT TO ROOM, EKG PREFORMED. RESULTS SENT TO DR ROLDAN. 1217 ORDERS RECEIVED, DR ROLDAN WILL COME BY TO SEE PT. PT PLACED ON CARDIAC MONITORS.
--- NOTE | 2019-03-30 12:54 | NUR ---
DR ROLDAN AT BS, PT IN NSR ORDERS FOR DISCHARGE. PT ALREADY HAS A FOLLOW UP APPT SCHEDULED.
== END 2019-03-30 12:50 | disposition home or self-care (01) ==
LOC: D.CATH 11:02
PROVIDERS: ATTEND Internal Medicine Cardiovascular Disease
DX: I48.91 Unspecified atrial fibrillation (principal); Z53.9 Procedure and treatment not carried out, unspecified reason